=== PATIENT | male | born 1960 | race Caucasian/White ===

== ENCOUNTER → 2016-11-22 | Outpatient (REF) | payer MEDICAID ==
[2016-11-22 11:26] LABS: MEAN CORPUSCULAR HEMOGLOBIN 28.7 pg (27.0-33.0); MEAN CORPUSCULAR HGB CONC 33.1 g/dl (32.0-36.5); MEAN CORPUSCULAR VOLUME 86.8 fl (80.0-96.0); RED CELL DISTRIBUTION WIDTH 12.5 % (11.5-14.5); WHITE BLOOD COUNT 5.5 K/mm3 (4.0-10.0)
[2016-11-22 12:01] LABS: ALBUMIN/GLOBULIN RATIO 1.33 (1.00-1.93); ALKALINE PHOSPHATASE 69 U/L (45-117); ALT/SGPT 33 U/L (12-78); ANION GAP 10 MEQ/L (8-16); AST/SGOT 12 U/L (15-37); BILIRUBIN,TOTAL 0.4 MG/DL (0.2-1.0); BLOOD UREA NITROGEN 17 MG/DL (7-18); CALCIUM LEVEL 8.9 MG/DL (8.5-10.1); CARBON DIOXIDE LEVEL 27 MEQ/L (21-32); CHLORIDE LEVEL 102 MEQ/L (98-107); CHOLESTEROL LEVEL 216 MG/DL (<200); GLOMERULAR FILTRATION RATE > 60.0 (>56); GLUCOSE, FASTING 277 MG/DL (70-105); SODIUM LEVEL 139 MEQ/L (136-145); TRIGLYCERIDES LEVEL 155 MG/DL (<150)
== END ==
LOC: M SFHCLERA 09:14
PROVIDERS: ATTEND Family Medicine
DX: E11.8 Type 2 diabetes mellitus with unspecified complications (principal); E11.69 Type 2 diabetes mellitus with other specified complication; E55.9 Vitamin D deficiency, unspecified

== ENCOUNTER 2017-02-16 15:57 | Emergency (ER) | payer MEDICAID, OTHER ==
[~2017-02-16] VITALS: Ht 177.8 cm; Wt 110.2 kg
[2017-02-16 15:57] VITALS: BP 121/70
[2017-02-16] MEDS ORDERED: METF500T PO (16:19)
[2017-02-16] MEDS ORDERED: GABA-283 PO (16:19)
[2017-02-16] MEDS ORDERED: LISI2.5T3 PO (16:19)
[2017-02-16] MEDS ORDERED: simvastatin (16:19)
[2017-02-16] MEDS ORDERED: FLUO10CA8 PO (16:19)
[2017-02-16] MEDS ORDERED: ASPI1TAB PO (16:19)
[2017-02-16] MEDS ORDERED: JANU100T (16:19)
[2017-02-16] MEDS ORDERED: [UNRECOGNIZED DRUG - OTHER] (16:19)
[2017-02-16] MEDS ORDERED: KETOROLAC 60 MG/2 ML VIAL (J1885) IM ONE (16:30)
[2017-02-16] MEDS ORDERED: CYCL10TA PO (17:23)
[2017-02-16] MEDS ORDERED: NAPR500T PO (17:23)
--- NOTE | 2017-02-17 08:25 | REP ---
Pain in the neck after trauma. PRIORS: None. There is degenerative disc space narrowing at every level, particularly at the C5-6 and C6-7 level where anterior and posterior osteophytic ridging is the heaviest. The facet joints are well aligned bilaterally. Degenerative facet and uncovertebral joint changes are present mildly to moderately at every level, particularly involving the lower cervical levels. Vertebral body height and alignment is within normal limits. There is no acute fracture. IMPRESSION: Chronic changes. No acute fracture. Signed by Collin Martínez DO 02/17/2017 08:51 A
--- NOTE | 2017-02-17 08:28 | REP ---
Pain after trauma. PRIORS: None. There is moderate disc space narrowing at L2-3. There is mild to moderate disc space narrowing at L1-2. Anterior and posterior osteophytic ridging is seen at the L1-2 and L2-3 levels. Disc osteophyte complex involving those regions is probable. There is no acute fracture. There is no abnormal soft tissue swelling. IMPRESSION: Chronic changes as described above. Signed by Collin Martínez DO 02/17/2017 08:51 A
== END 2017-02-16 17:43 | disposition home or self-care (01) ==
LOC: M ED 16:28
DX: S13.4XXA Sprain of ligaments of cervical spine, initial encounter (principal); S33.5XXA Sprain of ligaments of lumbar spine, initial encounter; W01.0XXA Fall on same level from slipping, tripping and stumbling without subsequent striking against object, initial encounter; Y92.89 Other specified places as the place of occurrence of the external cause; Y93.9 Activity, unspecified; Y99.9 Unspecified external cause status; I10 Essential (primary) hypertension; G89.29 Other chronic pain; Z79.82 Long term (current) use of aspirin; Z79.899 Other long term (current) drug therapy
CPT/HCPCS: 72125; 72131; 96372; 99281; J1885; J3360

== ENCOUNTER → 2017-02-20 | Outpatient (REF) | payer MEDICAID, OTHER ==
[~2017-02-20] MED LIST: ASPI1TAB PO; CYCL10TA PO; FLUO10CA8 PO; GABA-283 PO; JANU100T; LISI2.5T3 PO; METF500T PO; NAPR500T PO; [UNRECOGNIZED DRUG - OTHER]; simvastatin
[2017-02-20 18:01] LABS: MEAN CORPUSCULAR HEMOGLOBIN 29.5 pg (27.0-33.0); MEAN CORPUSCULAR VOLUME 86.7 fl (80.0-96.0); RED CELL DISTRIBUTION WIDTH 12.9 % (11.5-14.5); WHITE BLOOD COUNT 5.9 K/mm3 (4.0-10.0)
[2017-02-20 18:25] LABS: ALBUMIN/GLOBULIN RATIO 1.38 (1.00-1.93); ALKALINE PHOSPHATASE 69 U/L (45-117); ALT/SGPT 33 U/L (12-78); ANION GAP 8 MEQ/L (8-16); AST/SGOT 14 U/L (15-37); BILIRUBIN,TOTAL 0.5 MG/DL (0.2-1.0); BLOOD UREA NITROGEN 20 MG/DL (7-18); CARBON DIOXIDE LEVEL 28 MEQ/L (21-32); CHLORIDE LEVEL 102 MEQ/L (98-107); CHOLESTEROL LEVEL 194 MG/DL (<200); CREATININE FOR GFR 1.13 MG/DL (0.70-1.30); GLOMERULAR FILTRATION RATE > 60.0 (>56); GLUCOSE, FASTING 236 MG/DL (70-105); SODIUM LEVEL 138 MEQ/L (136-145); TOTAL PROTEIN 6.9 GM/DL (6.4-8.2); TRIGLYCERIDES LEVEL 141 MG/DL (<150)
[2017-02-20 18:38] LABS: POTASSIUM SERUM 5.4 MEQ/L (3.5-5.1)
== END ==
LOC: M SFHCLERA 10:00
PROVIDERS: ATTEND Family Medicine
DX: E11.8 Type 2 diabetes mellitus with unspecified complications (principal); E78.2 Mixed hyperlipidemia

== ENCOUNTER → 2017-03-04 | Outpatient (REF) | payer MEDICAID ==
[2017-03-05 11:49] LABS: ALBUMIN 4.4 GM/DL (3.2-5.2); ALBUMIN/GLOBULIN RATIO 1.52 (1.00-1.93); ALKALINE PHOSPHATASE 77 U/L (45-117); ALT/SGPT 30 U/L (12-78); ANION GAP 6 MEQ/L (8-16); AST/SGOT 16 U/L (15-37); BILIRUBIN,TOTAL 0.6 MG/DL (0.2-1.0); BLOOD UREA NITROGEN 16 MG/DL (7-18); CALCIUM LEVEL 9.4 MG/DL (8.5-10.1); CARBON DIOXIDE LEVEL 28 MEQ/L (21-32); CHLORIDE LEVEL 106 MEQ/L (98-107); GLOMERULAR FILTRATION RATE > 60.0 (>56); GLUCOSE, FASTING 186 MG/DL (70-105); SODIUM LEVEL 140 MEQ/L (136-145); TOTAL PROTEIN 7.3 GM/DL (6.4-8.2)
[2017-03-05 11:55] LABS: POTASSIUM SERUM 5.7 MEQ/L (3.5-5.1)
== END ==
LOC: M SFHCLERA 16:10
PROVIDERS: ATTEND Family Medicine
DX: M62.82 Rhabdomyolysis (principal)

== ENCOUNTER → 2017-03-20 | Outpatient (REF) | payer MEDICAID, OTHER ==
[2017-03-20 20:51] LABS: ANION GAP 5 MEQ/L (8-16); BLOOD UREA NITROGEN 30 MG/DL (7-18); CALCIUM LEVEL 8.9 MG/DL (8.5-10.1); CARBON DIOXIDE LEVEL 28 MEQ/L (21-32); CHLORIDE LEVEL 105 MEQ/L (98-107); CREATININE FOR GFR 1.29 MG/DL (0.70-1.30); GLOMERULAR FILTRATION RATE > 60.0 (>56); GLUCOSE, FASTING 96 MG/DL (70-105); POTASSIUM SERUM 4.9 MEQ/L (3.5-5.1); SODIUM LEVEL 138 MEQ/L (136-145)
== END ==
LOC: M SFHCLERA 16:51
PROVIDERS: ATTEND Family Medicine
DX: E87.5 Hyperkalemia (principal)

== ENCOUNTER → 2017-04-13 | Outpatient (CLI) | payer OTHER ==
[2017-04-13 10:07] LABS: BASO # 0.1 K/mm3 (0.0-0.2); BASO % 0.8 % (0.0-1.0); EOS # 0.2 K/mm3 (0.0-0.50); EOS % 2.6 % (0.0-3.0); LARGE UNSTAINED CELL # 0.2 K/mm3 (0.0-0.4); LARGE UNSTAINED CELL % 2.2 % (0.0-4.0); LYMPH # 2.2 K/mm3 (1.5-4.5); LYMPH % 26.9 % (24.0-44.0); MEAN CORPUSCULAR HEMOGLOBIN 29.8 pg (27.0-33.0); MEAN CORPUSCULAR HGB CONC 33.4 g/dl (32.0-36.5); MEAN CORPUSCULAR VOLUME 89.1 fl (80.0-96.0); MONO # 0.4 K/mm3 (0.0-0.8); MONO % 5.8 % (0.0-5.0); NEUTROPHILS # 4.6 K/mm3 (1.8-7.7); NEUTROPHILS % 61.7 % (36.0-66.0); PLATELET COUNT, AUTOMATED 166 k/mm3 (150-450); RED CELL DISTRIBUTION WIDTH 13.1 % (11.5-14.5); WHITE BLOOD COUNT 7.5 K/mm3 (4.0-10.0)
[2017-04-13 10:25] LABS: ANION GAP 6 MEQ/L (8-16); BLOOD UREA NITROGEN 18 MG/DL (7-18); CARBON DIOXIDE LEVEL 28 MEQ/L (21-32); CHLORIDE LEVEL 103 MEQ/L (98-107); CREATININE FOR GFR 1.09 MG/DL (0.70-1.30); GLOMERULAR FILTRATION RATE > 60.0 (>56); GLUCOSE, FASTING 179 MG/DL (70-105); SODIUM LEVEL 137 MEQ/L (136-145)
[2017-04-13 10:29] LABS: POTASSIUM SERUM 5.8 MEQ/L (3.5-5.1)
== END ==
LOC: M LAB 08:42
PROVIDERS: ATTEND Physician Assistant
DX: Z01.818 Encounter for other preprocedural examination (principal)

== ENCOUNTER → 2017-05-27 | Outpatient (REF) | payer MEDICAID ==
[~2017-05-27] MED LIST changes: -METF500T PO; +METF500T13 PO
[2017-05-27 19:10] LABS: ANION GAP 7 MEQ/L (8-16); BLOOD UREA NITROGEN 19 MG/DL (7-18); CALCIUM LEVEL 9.6 MG/DL (8.5-10.1); CARBON DIOXIDE LEVEL 26 MEQ/L (21-32); CHLORIDE LEVEL 101 MEQ/L (98-107); CREATININE FOR GFR 1.25 MG/DL (0.70-1.30); GLOMERULAR FILTRATION RATE > 60.0 (>56); GLUCOSE, FASTING 178 MG/DL (70-105); SODIUM LEVEL 134 MEQ/L (136-145)
[2017-05-27 19:11] LABS: POTASSIUM SERUM 5.2 MEQ/L (3.5-5.1)
[2017-05-27 19:58] LABS: MEAN CORPUSCULAR HEMOGLOBIN 30.5 pg (27.0-33.0); MEAN CORPUSCULAR HGB CONC 34.4 g/dl (32.0-36.5); MEAN CORPUSCULAR VOLUME 88.7 fl (80.0-96.0); RED CELL DISTRIBUTION WIDTH 13.6 % (11.5-14.5); WHITE BLOOD COUNT 7.6 K/mm3 (4.0-10.0)
== END ==
LOC: M SFHCLERA 11:49
PROVIDERS: ATTEND Family Medicine
DX: F41.9 Anxiety disorder, unspecified (principal); E11.69 Type 2 diabetes mellitus with other specified complication

== ENCOUNTER → 2017-08-18 | Outpatient (REF) | payer OTHER, MEDICAID | LOC: M SFHCLERA 09:46 | PROVIDERS: ATTEND Physician Assistant | DX: J06.9 Acute upper respiratory infection, unspecified (principal) ==

== ENCOUNTER → 2017-09-17 | Outpatient (REF) | payer OTHER, MEDICAID ==
[2017-09-17 17:21] LABS: ALBUMIN/GLOBULIN RATIO 1.38 (1.00-1.93); ALKALINE PHOSPHATASE 80 U/L (45-117); ALT/SGPT 27 U/L (12-78); ANION GAP 7 MEQ/L (8-16); AST/SGOT 11 U/L (7-37); BILIRUBIN,TOTAL 0.4 MG/DL (0.2-1.0); BLOOD UREA NITROGEN 13 MG/DL (7-18); CARBON DIOXIDE LEVEL 29 MEQ/L (21-32); CHLORIDE LEVEL 103 MEQ/L (98-107); CREATININE FOR GFR 1.08 MG/DL (0.70-1.30); FREE T4 0.87 NG/DL (0.76-1.46); GLOMERULAR FILTRATION RATE > 60.0 (>56); GLUCOSE, FASTING 160 MG/DL (70-105); SODIUM LEVEL 139 MEQ/L (136-145); TOTAL PROTEIN 6.9 GM/DL (6.4-8.2)
[2017-09-17 17:24] LABS: POTASSIUM SERUM 5.2 MEQ/L (3.5-5.1)
[2017-09-20 00:07] LABS: Lyme Disease IgG/IgM Antibodie <0.91 ISR (0.00-0.90); Lyme Disease IgM Ab Quantitati <0.80 index (0.00-0.79)
== END ==
LOC: M SFHCLERA 09:43
PROVIDERS: ATTEND Family Medicine
DX: M25.50 Pain in unspecified joint (principal)

== ENCOUNTER → 2017-10-09 | Outpatient (REF) | payer OTHER, MEDICAID | LOC: M SFHCLERA 10:25 | PROVIDERS: ATTEND Family Medicine | DX: E87.5 Hyperkalemia (principal) ==

== ENCOUNTER → 2018-02-15 | Outpatient (CLI) | payer OTHER, MEDICAID | LOC: M LRY 09:31 | DX: M25.561 Pain in right knee (principal); M17.11 Unilateral primary osteoarthritis, right knee | CPT/HCPCS: 73564 ==

== ENCOUNTER → 2018-03-12 | Outpatient (REF) | payer OTHER, MEDICAID ==
[2018-03-12 12:18] LABS: ALBUMIN 4.3 GM/DL (3.2-5.2); ALBUMIN/GLOBULIN RATIO 1.65 (1.00-1.93); ALKALINE PHOSPHATASE 71 U/L (45-117); ALT/SGPT 30 U/L (12-78); ANION GAP 5 MEQ/L (8-16); AST/SGOT 20 U/L (7-37); BILIRUBIN,TOTAL 0.4 MG/DL (0.2-1.0); BLOOD UREA NITROGEN 22 MG/DL (7-18); CALCIUM LEVEL 9.4 MG/DL (8.5-10.1); CARBON DIOXIDE LEVEL 27 MEQ/L (21-32); CHLORIDE LEVEL 109 MEQ/L (98-107); CHOLESTEROL LEVEL 149 MG/DL (<200); CHOLESTEROL RISK RATIO 3.104 (<5); CREATININE FOR GFR 1.23 MG/DL (0.70-1.30); GLOMERULAR FILTRATION RATE > 60.0 (>56); GLUCOSE, FASTING 251 MG/DL (70-100); HDL CHOLESTEROL 48 MG/DL (>40); LDL CHOLESTEROL 80.8 MG/DL (<100); NON-HDL-C 101 MG/DL; SODIUM LEVEL 141 MEQ/L (136-145); TOTAL PROTEIN 6.9 GM/DL (6.4-8.2); TRIGLYCERIDES LEVEL 101 MG/DL (<150)
[2018-03-12 12:22] LABS: POTASSIUM SERUM 5.6 MEQ/L (3.5-5.1)
[2018-03-12 13:11] LABS: ESTIMATED AVERAGE GLUCOSE 200 MG/DL (60-110); HEMOGLOBIN A1c 8.6 %
== END ==
LOC: M SFHCLERA 09:05
DX: E11.8 Type 2 diabetes mellitus with unspecified complications (principal); E78.2 Mixed hyperlipidemia

== ENCOUNTER → 2018-03-19 | Outpatient (REF) | payer OTHER, MEDICAID ==
[2018-03-19 21:12] LABS: POTASSIUM SERUM 5.5 MEQ/L (3.5-5.1)
== END ==
LOC: M SFHCLERA 16:22
DX: E87.5 Hyperkalemia (principal)
CPT/HCPCS: 84132

== ENCOUNTER 2018-07-31 12:41 | Emergency (ER) | payer OTHER, MEDICAID ==
[2018-07-31 13:19] LABS: BASO # 0.1 10^3/uL (0.0-0.2); BASO % 0.7 % (0.0-1.0); EOS # 0.1 10^3/uL (0.0-0.50); EOS % 1.5 % (0.0-3.0); HEMATOCRIT 36.4 % (42.0-52.0); HEMOGLOBIN 12.2 g/dl (13.5-17.5); IMMATURE GRANULOCYTE % 0.3 % (0-3.0); LYMPH # 1.6 10^3/uL (1.5-4.5); LYMPH % 21.8 % (24.0-44.0); MEAN CORPUSCULAR HGB CONC 33.5 g/dl (32.0-36.5); MEAN CORPUSCULAR VOLUME 89.4 fl (80.0-96.0); MONO # 0.6 10^3/uL (0.0-0.8); MONO % 7.9 % (0.0-5.0); NEUTROPHILS # 4.8 10^3/uL (1.8-7.7); NEUTROPHILS % 67.8 % (36.0-66.0); PLATELET COUNT, AUTOMATED 183 10^3/uL (150-450); RED BLOOD COUNT 4.07 10^6/uL (4.30-6.10); RED CELL DISTRIBUTION WIDTH 12.7 % (11.5-14.5); WHITE BLOOD COUNT 7.1 10^3/uL (4.0-10.0)
[2018-07-31 13:52] LABS: ANION GAP 7 MEQ/L (8-16); BLOOD UREA NITROGEN 20 MG/DL (7-18); CALCIUM LEVEL 8.3 MG/DL (8.5-10.1); CARBON DIOXIDE LEVEL 25 MEQ/L (21-32); CHLORIDE LEVEL 105 MEQ/L (98-107); CPK CREATINE PHOSPHOKINASE 189 U/L (39-308); CREATININE FOR GFR 1.38 MG/DL (0.70-1.30); GLOMERULAR FILTRATION RATE 56.7 (>56); GLUCOSE, FASTING 128 MG/DL (70-100); POTASSIUM SERUM 4.8 MEQ/L (3.5-5.1); SODIUM LEVEL 137 MEQ/L (136-145); TROPONIN I < 0.02 NG/ML (< 0.10)
[2018-07-31] MEDS ORDERED: ISOVUE-370 76% 100ML VIAL (Q9967) As Ordered (14:56)
[2018-07-31 19:10] LABS: CPK CREATINE PHOSPHOKINASE 167 U/L (39-308); MB/CK RELATIVE INDEX 1.68 (< OR =4); TROPONIN I < 0.02 NG/ML (< 0.10)
== END 2018-07-31 21:07 | disposition home or self-care (01) ==
LOC: M ED 12:41
DX: R07.89 Other chest pain (principal); E11.9 Type 2 diabetes mellitus without complications; I25.10 Atherosclerotic heart disease of native coronary artery without angina pectoris; I10 Essential (primary) hypertension; F41.9 Anxiety disorder, unspecified; F33.9 Major depressive disorder, recurrent, unspecified; Z79.899 Other long term (current) drug therapy; Z79.82 Long term (current) use of aspirin; Z79.84 Long term (current) use of oral hypoglycemic drugs
CPT/HCPCS: Q9967

== ENCOUNTER → 2018-09-10 | Outpatient (REF) | payer MEDICAID ==
[2018-09-10 11:40] LABS: BASO # 0.1 10^3/uL (0.0-0.2); BASO % 0.7 % (0.0-1.0); EOS # 0.1 10^3/uL (0.0-0.50); EOS % 1.1 % (0.0-3.0); HEMATOCRIT 39.4 % (42.0-52.0); HEMOGLOBIN 13.2 g/dl (13.5-17.5); IMMATURE GRANULOCYTE % 0.4 % (0-3.0); LYMPH # 1.6 10^3/uL (1.5-4.5); LYMPH % 14.3 % (24.0-44.0); MEAN CORPUSCULAR HEMOGLOBIN 29.2 pg (27.0-33.0); MEAN CORPUSCULAR HGB CONC 33.5 g/dl (32.0-36.5); MEAN CORPUSCULAR VOLUME 87.2 fl (80.0-96.0); MONO # 0.7 10^3/uL (0.0-0.8); MONO % 6.4 % (0.0-5.0); NEUTROPHILS # 8.8 10^3/uL (1.8-7.7); NEUTROPHILS % 77.1 % (36.0-66.0); PLATELET COUNT, AUTOMATED 198 10^3/uL (150-450); RED BLOOD COUNT 4.52 10^6/uL (4.30-6.10); RED CELL DISTRIBUTION WIDTH 12.5 % (11.5-14.5); WHITE BLOOD COUNT 11.4 10^3/uL (4.0-10.0)
[2018-09-10 11:45] LABS: ALBUMIN 4.1 GM/DL (3.2-5.2); ALBUMIN/GLOBULIN RATIO 1.46 (1.00-1.93); ALKALINE PHOSPHATASE 84 U/L (45-117); ALT/SGPT 30 U/L (12-78); ANION GAP 7 MEQ/L (8-16); AST/SGOT 11 U/L (7-37); BILIRUBIN,TOTAL 0.4 MG/DL (0.2-1.0); BLOOD UREA NITROGEN 23 MG/DL (7-18); CALCIUM LEVEL 9.1 MG/DL (8.5-10.1); CARBON DIOXIDE LEVEL 27 MEQ/L (21-32); CHLORIDE LEVEL 102 MEQ/L (98-107); CREATININE FOR GFR 1.23 MG/DL (0.70-1.30); GLOMERULAR FILTRATION RATE > 60.0 (>56); GLUCOSE, FASTING 218 MG/DL (70-100); POTASSIUM SERUM 5.1 MEQ/L (3.5-5.1); SODIUM LEVEL 136 MEQ/L (136-145); TOTAL PROTEIN 6.9 GM/DL (6.4-8.2)
[2018-09-10 11:54] LABS: ESTIMATED AVERAGE GLUCOSE 180 MG/DL (60-110); HEMOGLOBIN A1c 7.9 %
[2018-09-10 12:33] LABS: CREATININE, URINE 97.9 MG/DL; MALB URINE SIEMENS 26.3 MG/L
[2018-09-10 12:41] LABS: MAU/CREAT RATIO 26.9 MCG/MG (0.0-30.0)
== END ==
LOC: M SFHCLERA 08:57
DX: E11.319 Type 2 diabetes mellitus with unspecified diabetic retinopathy without macular edema (principal)

== ENCOUNTER → 2018-12-09 | Outpatient (REF) | payer MEDICAID, OTHER ==
[~2018-12-09] MED LIST changes: +CLOP75TA2 PO; -GABA-283 PO; +GABA-845 PO; +GLYB5TA PO; +LABE20TAB PO; -LISI2.5T3 PO; +LISI2.5T5 PO; +NAPR-50 PO; -NAPR500T PO; +NITR0.4S14 SL; +RANO5TAB PO; +SIMV40TA2 PO; +TRUL10IN SC
[2018-12-09 12:08] LABS: HEMATOCRIT 39.6 % (42.0-52.0); HEMOGLOBIN 12.8 g/dl (13.5-17.5); RED BLOOD COUNT 4.38 10^6/uL (4.30-6.10); WHITE BLOOD COUNT 7.9 10^3/uL (4.0-10.0)
[2018-12-09 12:09] LABS: BASO % 0.5 % (0.0-1.0); EOS # 0.1 10^3/uL (0.0-0.50); EOS % 1.5 % (0.0-3.0); LYMPH # 1.4 10^3/uL (1.5-4.5); LYMPH % 18.2 % (24.0-44.0); MEAN CORPUSCULAR HEMOGLOBIN 29.2 pg (27.0-33.0); MEAN CORPUSCULAR HGB CONC 32.3 g/dl (32.0-36.5); MEAN CORPUSCULAR VOLUME 90.4 fl (80.0-96.0); MONO # 0.7 10^3/uL (0.0-0.8); MONO % 8.3 % (0.0-5.0); NEUTROPHILS # 5.6 10^3/uL (1.8-7.7); PLATELET COUNT, AUTOMATED 193 10^3/uL (150-450)
[2018-12-09 12:37] LABS: HEMOGLOBIN A1c 7.8 %
== END ==
LOC: M SFHCLERA 08:51
PROVIDERS: ATTEND Family Medicine
DX: E11.319 Type 2 diabetes mellitus with unspecified diabetic retinopathy without macular edema (principal)

== ENCOUNTER → 2018-12-31 | Outpatient (REF) ==
--- NOTE | 2018-12-31 14:30 | REP ---
RIGHT KNEE, FIVE VIEWS: HISTORY: Degenerative joint disease. There is no acute fracture or dislocation. There is severe narrowing of the medial knee joint space and minimal narrowing of the lateral knee joint space and patellofemoral joint space. Osteophytes are present on the femur, tibia, and patella. IMPRESSION: Degenerative change, as described above. Electronically Signed by Gary Trujillo MD 12/31/2018 02:43 P
== END ==
LOC: M SMT 13:52
PROVIDERS: ATTEND Internal Medicine
DX: Z02.89 Encounter for other administrative examinations (principal)

== ENCOUNTER → 2019-05-06 | Outpatient (REF) | payer OTHER ==
[~2019-05-06] MED LIST changes: -ASPI1TAB PO; +ASPI81TA26 PO; +ATOR40TA75 PO; +LISI-1046 PO; -LISI2.5T5 PO; +METO37.5 PO; -NAPR-50 PO; +NAPR-837 PO; +NEUR300C PO; +RANO500T7 PO; -RANO5TAB PO; +VERA180T3 PO
[2019-05-06 12:00] LABS: CALCIUM LEVEL 8.9 MG/DL (8.5-10.1); CHOLESTEROL RISK RATIO 3.425 (<5); CREATININE FOR GFR 1.55 MG/DL (0.70-1.30); GLOMERULAR FILTRATION RATE 49.4 (>56); POTASSIUM SERUM 5.3 MEQ/L (3.5-5.1)
[2019-05-06 13:30] LABS: HEMOGLOBIN A1c 8.1 %
== END ==
LOC: M SFHCLERA 08:42
PROVIDERS: ATTEND Family Medicine
DX: E11.319 Type 2 diabetes mellitus with unspecified diabetic retinopathy without macular edema (principal); E78.5 Hyperlipidemia, unspecified

== ENCOUNTER → 2019-05-06 | Outpatient (CLI) | payer OTHER ==
--- NOTE | 2019-05-06 09:42 | REP ---
Clinical: Lower back pain. Technique: AP, lateral, bilateral oblique and coned-down views of the lumbosacral spine. Findings: Moderate multilevel degenerative changes are appreciated. Alignment and lordosis maintained. No acute lumbar fracture / compression injury or subluxation. Sacrum appears intact. However, the sacrococcygeal region is incompletely evaluated. Impression: Moderate multilevel degenerative changes. No acute fracture / compression injury or subluxation appreciated. Electronically Signed by Eyal Santiago MD 05/06/2019 09:34 A
== END ==
LOC: M LRY 08:56
PROVIDERS: ATTEND Family Medicine
DX: E11.319 Type 2 diabetes mellitus with unspecified diabetic retinopathy without macular edema (principal)

== ENCOUNTER 2019-05-08 17:42 | Emergency (ER) | payer OTHER ==
[~2019-05-08] VITALS: Ht 177.8 cm; Wt 107.3 kg
[~2019-05-08 17:42] MED LIST changes: -ATOR40TA75 PO; -METO37.5 PO; -NEUR300C PO; -VERA180T3 PO
[2019-05-08] MEDS ORDERED: METO37.5 PO (18:00)
[2019-05-08] MEDS ORDERED: ATOR40TA75 PO (18:00)
[2019-05-08] MEDS ORDERED: VERA180T3 PO (18:00)
[2019-05-08 18:02] LABS: BASO % 0.6 % (0.0-1.0); EOS # 0.2 10^3/uL (0.0-0.50); EOS % 2.2 % (0.0-3.0); HEMATOCRIT 38.7 % (42.0-52.0); LYMPH # 1.9 10^3/uL (1.5-4.5); LYMPH % 27.8 % (24.0-44.0); MEAN CORPUSCULAR HEMOGLOBIN 30.2 pg (27.0-33.0); MEAN CORPUSCULAR HGB CONC 33.6 g/dl (32.0-36.5); MEAN CORPUSCULAR VOLUME 89.8 fl (80.0-96.0); MONO # 0.7 10^3/uL (0.0-0.8); MONO % 9.9 % (0.0-5.0); NEUTROPHILS % 59.4 % (36.0-66.0); PLATELET COUNT, AUTOMATED 215 10^3/uL (150-450); RED BLOOD COUNT 4.31 10^6/uL (4.30-6.10); WHITE BLOOD COUNT 6.7 10^3/uL (4.0-10.0)
--- NOTE | 2019-05-08 18:30 | REPVR ---
EXAM: CT Head Without Contrast EXAM DATE/TIME: 05/08/2019 5:59 PM CLINICAL HISTORY: 59 years old, male; Altered mental status/memory loss; Confusion or disorientation TECHNIQUE: Imaging protocol: Axial computed tomography images of the head without contrast. Radiation optimization: All CT scans at this facility use at least one of these dose optimization techniques: automated exposure control; mA and/or kV adjustment per patient size (includes targeted exams where dose is matched to clinical indication); or iterative reconstruction. COMPARISON: No relevant prior studies available. FINDINGS: Brain: No intracranial hemorrhage. No evidence of acute infarction. Diffuse cortical volume loss. Patchy white matter hypodensities consistent with chronic small vessel ischemic changes among other possible etiologies. Ventricles: Concordant prominence of the ventricles relative to degree of cortical atrophy. Bones/joints: Unremarkable. No acute fracture. Sinuses: Visualized sinuses are unremarkable. No fluid levels. Mastoid air cells: No mastoid effusion. Soft tissues: Unremarkable. IMPRESSION: 1. No acute intracranial abnormality. 2. Nonacute/incidental findings above. Electronically signed by: Aftab Burks On 05/08/2019 18:30:21 PM
[2019-05-08 18:48] LABS: ACETAMINOPHEN LEVEL < 2.0 UG/ML (10.0-30.0); ALBUMIN 3.9 GM/DL (3.2-5.2); ALT/SGPT 31 U/L (12-78); BILIRUBIN,DIRECT 0.1 MG/DL (0.0-0.2); BILIRUBIN,TOTAL 0.4 MG/DL (0.2-1.0); BLOOD UREA NITROGEN 30 MG/DL (7-18); CALCIUM LEVEL 8.7 MG/DL (8.5-10.1); CARBON DIOXIDE LEVEL 23 MEQ/L (21-32); CHLORIDE LEVEL 107 MEQ/L (98-107); CK-MB VALUE MASS 3.3 NG/ML (<3.6); CPK CREATINE PHOSPHOKINASE 225 U/L (39-308); CREATININE FOR GFR 1.83 MG/DL (0.70-1.30); ETHYL ALCOHOL (ETHANOL) < 0.003 % (0.000-0.010); GLOMERULAR FILTRATION RATE 40.8 (>56); GLUCOSE, FASTING 258 MG/DL (70-100); MB/CK RELATIVE INDEX 1.47 (< OR =4); POTASSIUM SERUM 4.4 MEQ/L (3.5-5.1); SALICYLATE LEVEL < 1.7 MG/DL (5.0-30.0); SODIUM LEVEL 139 MEQ/L (136-145); TOTAL PROTEIN 6.8 GM/DL (6.4-8.2); TROPONIN I < 0.02 NG/ML (< 0.10)
[2019-05-08 19:00] VITALS: BP 120/56
[2019-05-08] MEDS ORDERED: NEUR300C PO (19:23)
--- NOTE | 2019-05-09 11:18 | ECGEPIP ---
[facility] - ED Test Date: 2019-05-08 Pat Name: DALTON PARHAM Department: Room: - Gender: Male Security Installer: MIGUEL ANGEL : 1960 Requested By: KULWINDER SPRINGER Order Number: [id number] Reading MD: Rasheeda Moy Measurements Intervals [place] Rate: 68 P: 14 DE: 148 QRS: 22 QRSD: 85 T: 43 QT: 412 QTc: 441 Interpretive Statements SINUS RHYTHM SIMILAR 07/31/18 Electronically Signed on 05-09-2019 11:18:09 EDT by Rasheeda Moy
== END 2019-05-08 19:35 | disposition home or self-care (01) ==
LOC: M ED 17:42
DX: E11.40 Type 2 diabetes mellitus with diabetic neuropathy, unspecified (principal); N28.9 Disorder of kidney and ureter, unspecified; I11.9 Hypertensive heart disease without heart failure; Z95.1 Presence of aortocoronary bypass graft; Z79.899 Other long term (current) drug therapy; Z79.82 Long term (current) use of aspirin; Z79.84 Long term (current) use of oral hypoglycemic drugs; Z79.02 Long term (current) use of antithrombotics/antiplatelets
CPT/HCPCS: 36415; 70450; 80048; 80076; 82550; 82553; 84443; 85025; 93005; 93041; 94760; 99285; G0480

== ENCOUNTER → 2019-05-13 | Outpatient (REF) | payer OTHER ==
[~2019-05-13] MED LIST changes: +ATOR40TA75 PO; +METO37.5 PO; +NEUR300C PO; +VERA180T3 PO
[2019-05-13 13:46] LABS: BLOOD UREA NITROGEN 13 MG/DL (7-18); CALCIUM LEVEL 9.4 MG/DL (8.5-10.1); CARBON DIOXIDE LEVEL 28 MEQ/L (21-32); CHLORIDE LEVEL 105 MEQ/L (98-107); GLOMERULAR FILTRATION RATE > 60.0 (>56); GLUCOSE, FASTING 143 MG/DL (70-100); POTASSIUM SERUM 4.8 MEQ/L (3.5-5.1); SODIUM LEVEL 139 MEQ/L (136-145)
== END ==
LOC: M SFHCLERA 12:31
PROVIDERS: ATTEND Family Medicine
DX: R79.89 Other specified abnormal findings of blood chemistry (principal)

== ENCOUNTER → 2019-05-18 | Outpatient (REF) | payer OTHER ==
[2019-05-18 17:17] LABS: URINE TOTAL PROTEIN 15.9 MG/DL (0-12)
[2019-05-18 17:29] LABS: TOTAL PROTEIN 7.1 GM/DL (6.4-8.2)
[2019-05-18 17:32] LABS: VITAMIN B12 LEVEL 220 PG/ML
[2019-05-19 12:45] LABS: ALBUMIN 4.42 GM/DL (3.29-5.55); ALBUMIN % 62.3 % (55.8-66.1); ALPHA-1-GLOBULIN % 4.6 % (2.9-4.9); ALPHA-1-GLOBULINS 0.33 GM/DL (0.17-0.41); ALPHA-2-GLOBULINS 0.92 GM/DL (0.42-0.99); ALPHA-2-GLOBULINS % 12.9 % (7.1-11.8); BETA-1-GLOBULINS % 6.3 % (4.7-7.2); BETA-2-GLOBULINS % 4.1 % (3.2-6.5); GAMMA GLOBULIN % 9.8 % (11.1-18.8)
[2019-05-19 12:46] LABS: BETA-1-GLOBULINS 0.45 GM/DL (0.28-0.60); BETA-2-GLOBULINS 0.29 GM/DL (0.19-0.55)
[2019-05-21 00:09] LABS: ANA (HEP2) Negative (.); Lyme Disease IgG/IgM Antibodie <0.91 ISR (0.00-0.90); Lyme Disease IgM Ab Quantitati <0.80 index (0.00-0.79)
[2019-05-21 12:30] LABS: UPEP INTERPRETATION NO M-SPIKE NOTED; URINE VOLUME RANDOM ML
== END ==
LOC: M SFHCLERA 13:26
PROVIDERS: ATTEND Family Medicine
DX: R20.0 Anesthesia of skin (principal)

== ENCOUNTER → 2019-05-27 | Outpatient (REF) | payer OTHER ==
[2019-05-27 16:20] LABS: FREE T4 0.84 NG/DL (0.76-1.46); RHEUMATOID FACTOR QUANT < 10.0 IU/ML (<15.0); TOTAL PROTEIN 7.4 GM/DL (6.4-8.2)
[2019-05-27 16:26] LABS: FOLATE 11.7 NG/ML (>5.4); VITAMIN B12 LEVEL 290 PG/ML (247-911)
[2019-05-28 13:12] LABS: ALBUMIN 4.49 GM/DL (3.29-5.55); ALBUMIN % 60.7 % (55.8-66.1); ALPHA-1-GLOBULIN % 4.8 % (2.9-4.9); ALPHA-1-GLOBULINS 0.36 GM/DL (0.17-0.41); ALPHA-2-GLOBULINS 1.01 GM/DL (0.42-0.99); ALPHA-2-GLOBULINS % 13.6 % (7.1-11.8); BETA-1-GLOBULINS 0.48 GM/DL (0.28-0.60); BETA-1-GLOBULINS % 6.5 % (4.7-7.2); BETA-2-GLOBULINS 0.31 GM/DL (0.19-0.55); BETA-2-GLOBULINS % 4.2 % (3.2-6.5); GAMMA GLOBULIN % 10.2 % (11.1-18.8); GAMMA GLOBULINS 0.75 GM/DL (0.65-1.58)
[2019-06-02 14:07] LABS: ANTINUCLEAR ANTIBODIES DIRECT Negative (Negative); Methylmalonic Acid 258 nmol/L (0-378); VITAMIN B1 LEVEL WHOLE BLOOD 170.2 nmol/L (66.5-200.0); VITAMIN B6,PYRIDOXAL PHOSPHATE 11.6 ug/L (5.3-46.7); VITAMIN E(GAMMA TOCOPHEROL) 2.5 mg/L (0.5-5.5)
== END ==
LOC: M LABNEURO 14:46
PROVIDERS: ATTEND Psychiatry & Neurology Neurology
DX: R20.2 Paresthesia of skin (principal)

== ENCOUNTER → 2019-07-20 | Outpatient (CLI) | payer OTHER ==
[2019-07-20 17:21] LABS: FOLATE 10.6 NG/ML
== END ==
LOC: M LRY 12:33
PROVIDERS: ATTEND Psychiatry & Neurology Neurology
DX: E53.8 Deficiency of other specified B group vitamins (principal)

== ENCOUNTER → 2019-08-27 | Outpatient (CLI) | payer OTHER ==
--- NOTE | 2019-08-27 13:08 | REP ---
Two-view chest: 08/27/2019. Indication: Dyspnea. Comparison: 02/19/2019. Findings: The lungs are clear. There is no pleural effusion or pneumothorax. The cardiomediastinal silhouette is unremarkable. Impression: No acute cardiopulmonary process. Electronically Signed by Demetrio Dale DO 08/27/2019 12:59 P
== END ==
LOC: M SMT 10:43
PROVIDERS: ATTEND Internal Medicine Pulmonary Disease
DX: R06.02 Shortness of breath (principal)

== ENCOUNTER → 2019-09-01 | Outpatient (REF) | payer OTHER ==
[2019-09-01 12:13] LABS: CREATININE FOR GFR 1.41 MG/DL (0.70-1.30); GLOMERULAR FILTRATION RATE 55.2 (>56); POTASSIUM SERUM 5.3 MEQ/L (3.5-5.1)
[2019-09-01 12:35] LABS: MALB URINE SIEMENS 64.3 MG/L; MAU/CREAT RATIO 34.9 MCG/MG (0.0-30.0)
[2019-09-01 12:41] LABS: HEMOGLOBIN A1c 7.8 %
== END ==
LOC: M SFHCLERA 07:57
PROVIDERS: ATTEND Family Medicine
DX: E11.319 Type 2 diabetes mellitus with unspecified diabetic retinopathy without macular edema (principal)

== ENCOUNTER → 2019-09-08 | Outpatient (CLI) | payer OTHER ==
--- NOTE | 2019-09-08 14:26 | PFTRPT ---
Height: 70.00 Inches Weight: 240.00 Lbs BSA: 2.26 Diagnosis: R06.02 DATE OF PROCEDURE: 09/08/2019 ORDERED BY: Dr. Manjeet Barnes Spirometry: Pre and post bronchodilator study of excellent technical quality. Forced vital capacity mildly reduced. FEV1 is in proportion. Obstructive index is, therefore, normal. Flow Volume Loop: Expiratory limb of the flow volume loop suggests nonspecific flow rate limitation. No significant bronchodilator response is identified. Lung Volumes: Total lung capacity normal. Residual volume is in proportion. Diffusing Capacity: Diffusing capacity, although mildly reduced, is appropriate for alveolar volume. Hemoglobin: Hemoglobin acceptable at 13.5. Airway Mechanics: Airway resistance mildly elevated with a concomitant decrease in airway conductance. IMPRESSION: Mild reduction in the absolute diffusing capacity with elevated airway resistance. Please correlate clinically. MTDD
== END ==
LOC: M CARPUL 13:22
PROVIDERS: ATTEND Internal Medicine Pulmonary Disease
DX: R06.02 Shortness of breath (principal)

== ENCOUNTER → 2019-09-22 | Outpatient (CLI) | payer OTHER ==
--- NOTE | 2019-09-28 12:28 | SLEEPCENT ---
DATE OF PROCEDURE: 09/22/2019 ORDERED BY: Dr. Barnes Nocturnal polysomnography was performed for evaluation of sleep physiology in this patient with a history of excessive somnolence and nonrestorative sleep who has underlying comorbidity of hypertension. 7 hours and 56 minutes of data were reviewed. There were 398.5 minutes of sleep identified. Sleep latency was normal at 18 minutes. Rapid eye movement (REM) latency was somewhat delayed at 182 minutes. Sleep architecture showed fragmentation with one REM episode. Overall sleep efficiency was 84.4%. The patient's electrocardiogram showed sinus rhythm with an average heart rate at 58 beats per minute. Electroencephalogram (EEG) showed normal waveforms for awake and sleep. There were 351 respiratory events identified of 10 seconds in duration or greater for an apnea-hypopnea index of 52.8. The events were primarily obstructive, not exclusive to sleep stage, more frequent in the supine posture. Arousals from respiratory events occurred 24.2 times per hour and oxygen desaturations were seen into the 80s. There was some activity in the limb EMG leads but limb movement arousal index is only 0.3. Snoring was noted over the entire course of study. IMPRESSION: Severe obstructive sleep apnea syndrome (G47.33). Apnea-hypopnea index 52.8. RECOMMENDATIONS: The patient should be encouraged to return to sleep disorder center for pressure therapy. In the interim, alcohol and sedative avoidance should be practiced and caution exercised during operation of motor vehicles.
== END ==
LOC: M SLEEP 17:51
PROVIDERS: ATTEND Internal Medicine Pulmonary Disease
DX: G47.33 Obstructive sleep apnea (adult) (pediatric) (principal)

== ENCOUNTER 2019-10-21 19:23 | Emergency (ER) | payer OTHER ==
[~2019-10-21 19:23] MED LIST changes: +FLUO10CA15 PO; -FLUO10CA8 PO; -SIMV40TA2 PO; +SIMV40TA20 PO
[2019-10-21] MEDS ORDERED: GLIP10TA PO (19:46)
[2019-10-21] MEDS ORDERED: STEG5TAB PO (19:47)
[2019-10-21] MEDS ORDERED: CHLO125TA (19:49)
[2019-10-21] MEDS ORDERED: dexameTHASONE 20 MG/5 ML VIAL (J1100) IV ONE (20:00)
[2019-10-21] MEDS: IPRATROPIUM 0.5MG/ALBUTEROL 2.5MG INH SOL UD 3ML (DUONEB)(J7620) NEB SCH ×3 (20:14→20:57)
[2019-10-21 20:19] LABS: VENOUS BASE EXCESS 1.5 (-2.0-2.0); VENOUS O2 SATURATION 40.8 % (60.0-80.0); VENOUS PARTIAL PRESSURE CO2 51.8 mmHg (38.0-50.0); VENOUS PH 7.351 UNITS (7.330-7.430); VENOUS STANDARD HCO3 24.4 MEQ/L; VENOUS TOTAL CO2 29.6 MEQ/L (24.0-28.0)
[2019-10-21 20:21] LABS: BASO % 0.3 % (0.0-1.0); EOS # 0.1 10^3/uL (0.0-0.5); EOS % 1.2 % (0.0-3.0); HEMATOCRIT 42.5 % (42.0-52.0); HEMOGLOBIN 13.8 g/dl (13.5-17.5); LYMPH # 1.5 10^3/uL (1.5-5.0); LYMPH % 13.4 % (24.0-44.0); MEAN CORPUSCULAR HEMOGLOBIN 28.9 pg (27.0-33.0); MEAN CORPUSCULAR HGB CONC 32.5 g/dl (32.0-36.5); MEAN CORPUSCULAR VOLUME 89.1 fl (80.0-96.0); MONO # 0.6 10^3/uL (0.0-0.8); MONO % 5.4 % (0.0-5.0); NEUTROPHILS # 8.8 10^3/uL (1.5-8.5); NEUTROPHILS % 79.4 % (36.0-66.0); PLATELET COUNT, AUTOMATED 224 10^3/uL (150-450); RED BLOOD COUNT 4.77 10^6/uL (4.30-6.10); WHITE BLOOD COUNT 11.1 10^3/uL (4.0-10.0)
[2019-10-21 20:42] LABS: BLOOD UREA NITROGEN 27 MG/DL (7-18); CALCIUM LEVEL 9.1 MG/DL (8.5-10.1); CARBON DIOXIDE LEVEL 29 MEQ/L (21-32); CHLORIDE LEVEL 99 MEQ/L (98-107); CK-MB VALUE MASS 1.9 NG/ML (<3.6); CPK CREATINE PHOSPHOKINASE 156 U/L (39-308); CREATININE FOR GFR 1.89 MG/DL (0.70-1.30); GLOMERULAR FILTRATION RATE 39.3 (>56); GLUCOSE, FASTING 129 MG/DL (70-100); MB/CK RELATIVE INDEX 1.22 (< OR =4); NT-PRO BNP 103 PG/ML (<125); POTASSIUM SERUM 3.8 MEQ/L (3.5-5.1); SODIUM LEVEL 139 MEQ/L (136-145); TROPONIN I < 0.02 NG/ML (< 0.10)
[2019-10-21 20:54] LABS: INFLUENZA A AMPLIFICATION NEGATIVE (NEGATIVE); INFLUENZA B AMPLIFICATION NEGATIVE (NEGATIVE)
[2019-10-21] MEDS ORDERED: NS 1,000 ML IV ONE (21:00)
--- NOTE | 2019-10-21 21:24 | REP ---
CHEST, TWO VIEWS: There is no evidence of acute infiltrate. No pleural effusion is seen. The heart is normal in size. The mediastinal silhouette is unremarkable. The visualized osseous structures are intact. IMPRESSION: No acute pulmonary disease. Electronically Signed by Pan Elmore MD 10/22/2019 08:48 A
--- NOTE | 2019-10-21 23:10 | ED PDOC ---
Post-Departure Follow-Up The T sheet had been already removed at this time. Documenting here the pt. wish ed to leave so he could take care of his mother. The pt. will have to leave AMA. FAUSTINO JUÁREZ DO Oct 21, 2019 23:10
[2019-10-21] MEDS ORDERED: PRED20TA PO (23:11)
[2019-10-21] MEDS ORDERED: ATOR80TA59 PO (23:31)
[2019-10-21] MEDS ORDERED: FLUO20CA20 PO (23:31)
[2019-10-21] MEDS ORDERED: CHLO25TA PO (23:31)
[2019-10-21] MEDS ORDERED: TRUL0.5I SC (23:31)
[2019-10-21] MEDS ORDERED: GABA-843 PO (23:31)
[2019-10-21] MEDS ORDERED: RANO500T PO (23:35)
[2019-10-21] MEDS ORDERED: METF-877 PO (23:35)
[2019-10-21] MEDS ORDERED: METO1TAB87 PO (23:35)
--- NOTE | 2019-10-21 23:47 | REPVR ---
PROCEDURE INFORMATION: Exam: CT Chest Without Contrast Exam date and time: 10/21/2019 10:54 PM Age: 59 years old Clinical indication: Dyspnea; Additional info: Dysp TECHNIQUE: Imaging protocol: Computed tomography of the chest without contrast. 3D rendering: MIP and/or 3D reconstructed images were created by the technologist. Radiation optimization: All CT scans at this facility use at least one of these dose optimization techniques: automated exposure control; mA and/or kV adjustment per patient size (includes targeted exams where dose is matched to clinical indication); or iterative reconstruction. COMPARISON: CT ANGIO CHEST 07/31/2018 2:54 PM FINDINGS: Lungs: Scattered reticulonodular interstitial densities and some areas of mild bronchial wall thickening are noted in both lungs. Airways are clear. No other airspace consolidation or masses. Pleural space: Unremarkable. No pneumothorax. No pleural effusion. Heart: Coronary artery atherosclerotic disease is present. Normal heart size. Aorta: Unremarkable. No aortic aneurysm. Lymph nodes: Unremarkable. No enlarged lymph nodes. Bones/joints: Unremarkable. No acute fracture. Soft tissues: Unremarkable. IMPRESSION: 1. Reticulonodular opacities and bronchial wall thickening in both lungs suggesting a viral or atypical bronchiolitis. 2. Coronary artery disease. Electronically signed by: Travis Long On 10/21/2019 23:46:54 PM
[2019-10-21 23:50] VITALS: BP 124/59
--- NOTE | 2019-10-23 22:10 | ECGEPIP ---
[facility] - ED Test Date: 2019-10-21 Pat Name: DALTON PARHAM Department: Room: - Gender: Male Investigation Clerk: RADHA : 1960 Requested By: FAUSTINO JUÁREZ Order Number: [id number] Reading MD: Lit Browne Measurements Intervals [place] Rate: 71 P: 16 SC: 160 QRS: 6 QRSD: 88 T: 50 QT: 417 QTc: 454 Interpretive Statements SINUS RHYTHM MODERATE T-WAVE ABNORMALITY, CONSIDER LATERAL ISCHEMIA Baseline artifact Similar to tracing done 05-08-19 Electronically Signed on 10-23-2019 22:09:51 EST by Lit Browne
--- NOTE | 2019-10-26 08:12 | ED PDOC ---
Post-Departure Follow-Up dr sheehan faxed formal report of ct chest foro Yobani Angulo MD Oct 26, 2019 08:12
== END 2019-10-21 23:49 | disposition left against medical advice (07) ==
LOC: M ED 19:23
DX: R09.02 Hypoxemia (principal); J20.9 Acute bronchitis, unspecified; Z53.21 Procedure and treatment not carried out due to patient leaving prior to being seen by health care provider; E11.9 Type 2 diabetes mellitus without complications; I10 Essential (primary) hypertension; I25.10 Atherosclerotic heart disease of native coronary artery without angina pectoris; F32.9 Major depressive disorder, single episode, unspecified; F41.9 Anxiety disorder, unspecified; Z98.61 Coronary angioplasty status; Z79.02 Long term (current) use of antithrombotics/antiplatelets
CPT/HCPCS: 71046; 71250; 80048; 82550; 82553; 82803; 83880; 85025; 87040; 87502; 93005; 94640; 96374; 96375; 99285; J1100

== ENCOUNTER → 2019-11-09 | Outpatient (CLI) | payer OTHER ==
[~2019-11-09] MED LIST changes: +ATOR80TA59 PO; +CHLO125TA; +CHLO25TA PO; +FLUO20CA20 PO; +GABA-843 PO; +GLIP10TA PO; +METF-877 PO; +METO1TAB87 PO; +PRED20TA PO; +RANO500T PO; +STEG5TAB PO; +TRUL0.5I SC
--- NOTE | 2019-11-10 17:30 | SLEEPCENT ---
DATE OF PROCEDURE: 11/09/2019 ORDERED BY: Dr. Barnes Nocturnal polysomnography was performed for the titration of pressure therapy in this patient with obstructive sleep apnea syndrome. Apnea-hypopnea index of 52.8. For testing the patient was fit with a ResMed AirFit F20 full face mask of large size, 4 cm of water pressure were applied to the circuit and the lights were extinguished. 7 hours and 43 minutes of data were reviewed. There were 388.5 minutes of sleep identified. Sleep latency was prolonged at 55.5 minutes. Rapid eye movement (REM) latency was prolonged at 187 minutes. Sleep architecture improved on optimal pressure therapy. Overall sleep efficiency was 84.8%. The patient's electrocardiogram showed a sinus rhythm with an average heart rate of 64 beats per minute. EEG showed reasonably normal waveforms for awake and sleep. Respiratory events were reasonably well palliated with continuous positive airway pressure (CPAP) at a pressure of +8. Significant limb activity persisted, but limb movement arousal index was only 5.9. IMPRESSION: Obstructive sleep apnea syndrome (G47.33). RECOMMENDATIONS: Nightly use of pressure therapy 8 cm of water.
== END ==
LOC: M SLEEP 19:39
PROVIDERS: ATTEND Internal Medicine Pulmonary Disease
DX: G47.33 Obstructive sleep apnea (adult) (pediatric) (principal)

== ENCOUNTER → 2020-02-23 | Outpatient (REF) | payer OTHER ==
[~2020-02-23] MED LIST changes: +CYCL-707 PO; -CYCL10TA PO
[2020-02-23 12:15] LABS: BASO # 0.1 10^3/uL (0.0-0.2); BASO % 0.7 % (0.0-1.0); EOS # 0.1 10^3/uL (0.0-0.5); EOS % 1.4 % (0.0-3.0); HEMATOCRIT 47.5 % (42.0-52.0); HEMOGLOBIN 15.7 g/dl (13.5-17.5); LYMPH # 2.1 10^3/uL (1.5-5.0); LYMPH % 22.1 % (24.0-44.0); MEAN CORPUSCULAR HGB CONC 33.1 g/dl (32.0-36.5); MEAN CORPUSCULAR VOLUME 87.8 fl (80.0-96.0); MONO # 0.8 10^3/uL (0.0-0.8); MONO % 8.4 % (0.0-5.0); NEUTROPHILS # 6.3 10^3/uL (1.5-8.5); NEUTROPHILS % 67.1 % (36.0-66.0); PLATELET COUNT, AUTOMATED 225 10^3/uL (150-450); RED BLOOD COUNT 5.41 10^6/uL (4.30-6.10); WHITE BLOOD COUNT 9.5 10^3/uL (4.0-10.0)
[2020-02-23 12:55] LABS: ALBUMIN 4.4 GM/DL (3.2-5.2); BILIRUBIN,TOTAL 0.6 MG/DL (0.2-1.0); CALCIUM LEVEL 9.9 MG/DL (8.5-10.1); CHOLESTEROL RISK RATIO 3.909 (<5); CREATININE FOR GFR 1.53 MG/DL (0.70-1.30); GLOMERULAR FILTRATION RATE 50.2 (>56); POTASSIUM SERUM 4.3 MEQ/L (3.5-5.1); TOTAL PROTEIN 7.5 GM/DL (6.4-8.2)
[2020-02-23 12:58] LABS: CREATININE, URINE 76.3 MG/DL; MALB URINE SIEMENS 28.2 MG/L; MAU/CREAT RATIO 36.9 MCG/MG (0.0-30.0)
[2020-02-23 14:53] LABS: HEMOGLOBIN A1c 8.6 %
== END ==
LOC: M SFHCLERA 09:51
PROVIDERS: ATTEND Family Medicine
DX: E11.8 Type 2 diabetes mellitus with unspecified complications (principal); R10.9 Unspecified abdominal pain

== ENCOUNTER → 2020-07-05 | Outpatient (REF) | payer OTHER ==
[~2020-07-05] MED LIST changes: -FLUO10CA15 PO; +FLUO10CA16 PO; -LISI-1046 PO; +LISI2.5T2 PO; -RANO500T PO; +RANO500T2 PO
[2020-07-05 16:08] LABS: CALCIUM LEVEL 9.5 MG/DL (8.5-10.1); CREATININE FOR GFR 1.62 MG/DL (0.70-1.30); GLOMERULAR FILTRATION RATE 46.8 (>56); POTASSIUM SERUM 4.3 MEQ/L (3.5-5.1)
[2020-07-05 16:42] LABS: HEMOGLOBIN A1c 7.2 %
== END ==
LOC: M LABDRWAD 09:06
PROVIDERS: ATTEND Family Medicine
DX: E11.9 Type 2 diabetes mellitus without complications (principal); N18.9 Chronic kidney disease, unspecified

== ENCOUNTER → 2020-08-15 | Outpatient (REF) | payer OTHER | LOC: M SFHCLERA 10:17 | PROVIDERS: ATTEND Nurse Practitioner Family | DX: J02.9 Acute pharyngitis, unspecified (principal) ==

== ENCOUNTER → 2020-09-23 | Outpatient (CLI) | payer OTHER | LOC: M LABSMTC 10:32 | PROVIDERS: ATTEND Pediatrics | DX: Z20.828 Contact with and (suspected) exposure to other viral communicable diseases (principal) ==

== ENCOUNTER → 2020-11-24 | Outpatient (CLI) | payer OTHER ==
[~2020-11-24] MED LIST changes: +GABA-282 PO; -GABA-843 PO; -GLYB5TA PO; +GLYB5TAB6 PO
[2020-11-24 16:25] LABS: BASO # 0.1 10^3/uL (0.0-0.2); BASO % 0.6 % (0.0-1.0); EOS # 0.1 10^3/uL (0.0-0.5); EOS % 1.2 % (0.0-3.0); HEMATOCRIT 46.4 % (42.0-52.0); HEMOGLOBIN 15.1 g/dl (13.5-17.5); LYMPH % 24.4 % (24.0-44.0); MEAN CORPUSCULAR HEMOGLOBIN 29.3 pg (27.0-33.0); MEAN CORPUSCULAR HGB CONC 32.5 g/dl (32.0-36.5); MEAN CORPUSCULAR VOLUME 90.1 fl (80.0-96.0); MONO # 0.7 10^3/uL (0.0-0.8); MONO % 8.7 % (0.0-5.0); NEUTROPHILS # 5.4 10^3/uL (1.5-8.5); NEUTROPHILS % 64.9 % (36.0-66.0); PLATELET COUNT, AUTOMATED 222 10^3/uL (150-450); RED BLOOD COUNT 5.15 10^6/uL (4.30-6.10); WHITE BLOOD COUNT 8.3 10^3/uL (4.0-10.0)
[2020-11-24 16:48] LABS: HEMOGLOBIN A1c 7.6 %
[2020-11-24 16:52] LABS: ALBUMIN 4.5 GM/DL (3.2-5.2); BILIRUBIN,TOTAL 0.6 MG/DL (0.2-1.0); CALCIUM LEVEL 9.3 MG/DL (8.5-10.1); CREATININE FOR GFR 1.66 MG/DL (0.70-1.30); GLOMERULAR FILTRATION RATE 45.5 (>56); POTASSIUM SERUM 3.9 MEQ/L (3.5-5.1); TOTAL PROTEIN 7.4 GM/DL (6.4-8.2)
[2020-11-24 17:01] LABS: MALB URINE SIEMENS 37.9 MG/L; MAU/CREAT RATIO 37.1 MCG/MG (0.0-30.0)
[2020-11-24 17:04] LABS: APPEARANCE, URINE CLEAR (CLEAR); BACTERIA, URINE AUTO NEGATIVE (NEGATIVE); BILIRUBIN, URINE AUTO NEGATIVE (NEGATIVE); BLOOD, URINE BLOOD NEGATIVE (NEGATIVE); COLOR, URINE YELLOW (YELLOW); GLUCOSE, URINE (UA) AUTO 3+ mg/dL (NEGATIVE); KETONE, URINE AUTO NEGATIVE (NEGATIVE); LEUKOCYTE ESTERASE, URINE AUTO NEGATIVE (NEGATIVE); NITRITE, URINE AUTO NEGATIVE (NEGATIVE); PROTEIN, URINE AUTO NEGATIVE (NEGATIVE); RBC, URINE AUTO 0 /HPF (0-3); SPECIFIC GRAVITY URINE AUTO 1.016 (1.002-1.035); SQUAMOUS EPITHELIAL CELL UR AU 0 /HPF (0-6); UROBILINOGEN, URINE AUTO 0.2 mg/dL (0.0-2.0); WBC, URINE AUTO 0 /HPF (0-3)
== END ==
LOC: M WUC 13:55
PROVIDERS: ATTEND Family Medicine
DX: E11.8 Type 2 diabetes mellitus with unspecified complications (principal); R14.0 Abdominal distension (gaseous); R79.89 Other specified abnormal findings of blood chemistry

== ENCOUNTER 2021-02-26 16:46 | Emergency (ER) | payer MEDICARE, OTHER ==
[~2021-02-26] VITALS: Ht 175.3 cm; Wt 102.4 kg
[2021-02-26 16:47] VITALS: BP 116/56
[2021-02-26] MEDS ORDERED: OMEP-221 (16:57)
[2021-02-26] MEDS ORDERED: LOSA25TA14 (16:57)
--- NOTE | 2021-02-26 17:26 | REP ---
INDICATION: PAIN/DECREASED ROM COMPARISON: None. TECHNIQUE: Internal rotation, external rotation, and Y view. FINDINGS: No acute fracture or dislocation. Acromioclavicular joint demonstrates mild cortical irregularity. The subacromial space is normal. No periarticular loose bodies are identified. A bulky osteophyte forming along the posterior aspect of the calcified glenoid rim cannot be excluded. The glenohumeral joint is otherwise normal and without fracture or dislocation. IMPRESSION: Degenerative changes as noted above including possible osteophyte forming along the posterior aspect of the glenoid rim. <Electronically signed by Eyal Santiago > 02/26/21 [id number]
== END 2021-02-26 17:47 | disposition home or self-care (01) ==
LOC: M ED 16:46
DX: M25.511 Pain in right shoulder (principal); E11.9 Type 2 diabetes mellitus without complications; E78.5 Hyperlipidemia, unspecified; I51.9 Heart disease, unspecified

== ENCOUNTER 2021-04-25 06:38 | Day surgery (SDC) | payer MEDICARE, OTHER ==
[~2021-04-25] VITALS: Ht 175.3 cm; Wt 93.0 kg
[~2021-04-25 06:38] MED LIST changes: +B12-1CHW PO; +FURO20TA2 PO; +GABA-283 PO; -GABA-845 PO; +LOSA25TA14; +MAGN400C PO; +NS 1,000 ML IV ONE; +OMEP-221
[2021-04-25] MEDS ORDERED: propofoL 200 MG/20 ML VIAL As Ordered ONE (06:59)
[2021-04-25] MEDS ORDERED: LIDOCAINE 2% 100MG/5ML SDV (FOR ANES.) As Ordered ONE (06:59)
--- NOTE | 2021-04-25 08:13 | ROOR ---
Patient Name: Jose De Jesus Connolly Procedure Date: 04/25/2021 7:31 AM Date of : 1960 Age: 61 Room: [facility] Gender: Male Note Status: Finalized Procedure: Upper GI endoscopy Indications: Dyspepsia Providers: Rakesh Farmer MD Referring MD: Gary Blanchard DO Requesting Provider: Medicines: Monitored Anesthesia Care Complications: No immediate complications. Procedure: Pre-Anesthesia Assessment: - Prior to the procedure, a History and Physical was performed, and patient medications and allergies were reviewed. The patient is competent. The risks and benefits of the procedure and the sedation options and risks were discussed with the patient. All questions were answered and informed consent was obtained. Patient identification and proposed procedure were verified by the physician, the nurse and the anesthesiologist in the procedure room. Mental Status Examination: alert and oriented. Airway Examination: normal oropharyngeal airway and neck mobility. Respiratory Examination: clear to auscultation. CV Examination: normal. Prophylactic Antibiotics: The patient does not require prophylactic antibiotics. Prior Anticoagulants: The patient has taken no previous anticoagulant or antiplatelet agents. ASA Grade Assessment: II - A patient with mild systemic disease. After reviewing the risks and benefits, the patient was deemed in satisfactory condition to undergo the procedure. The anesthesia plan was to use monitored anesthesia care (MAC). Immediately prior to administration of medications, the patient was re-assessed for adequacy to receive sedatives. The heart rate, respiratory rate, oxygen saturations, blood pressure, adequacy of pulmonary ventilation, and response to care were monitored throughout the procedure. The physical status of the patient was re-assessed after the procedure. The Endoscope was introduced through the mouth, and advanced to the second part of duodenum. The upper GI endoscopy was accomplished without difficulty. The patient tolerated the procedure well. Findings: The examined esophagus was normal. The Z-line was regular and was found 39 cm from the incisors. Scattered moderate inflammation characterized by erythema, friability and granularity was found in the gastric antrum. Biopsies were taken with a cold forceps for Helicobacter pylori testing. Verification of patient identification for the specimen was done by the physician and nurse using the patient's name, date and medical record number. Estimated blood loss was minimal. The duodenal bulb and second portion of the duodenum were normal. Biopsies for histology were taken with a cold forceps for evaluation of celiac disease. Impression: - Normal esophagus. - Z-line regular, 39 cm from the incisors. - Gastritis. Biopsied. - Normal duodenal bulb and second portion of the duodenum. Biopsied. Recommendation: - Patient has a contact number available for emergencies. The signs and symptoms of potential delayed complications were discussed with the patient. Return to normal activities tomorrow. Written discharge instructions were provided to the patient. - High fiber diet. - Continue present medications. - Await pathology results. - Follow an antireflux regimen. - Telephone GI clinic for pathology results in 2 weeks. - Return to primary care physician. Procedure Code(s): --- Professional --- 28401, Esophagogastroduodenoscopy, flexible, transoral; with biopsy, single or multiple Diagnosis Code(s): --- Professional --- K29.70, Gastritis, unspecified, without bleeding R10.13, Epigastric pain CPT copyright 2019 [employer]. All rights reserved. The codes documented in this report are preliminary and upon orthopedic coder review may be revised to meet current compliance requirements. Rakesh Farmer MD Rakesh Farmer MD 04/25/2021 8:13:14 AM Electronically signed by Rakesh Farmer MD Number of Addenda: 0 Note Initiated On: 04/25/2021 7:31 AM Estimated Blood Loss: Estimated blood loss was minimal.
--- NOTE | 2021-04-25 08:16 | ROOR ---
Patient Name: Jose De Jesus Connolly Procedure Date: 04/25/2021 7:31 AM Date of : 1960 Age: 61 Room: [facility] Gender: Male Note Status: Finalized Procedure: Colonoscopy Indications: Screening for colorectal malignant neoplasm Providers: Rakesh Farmer MD Referring MD: Gary Blanchard DO Requestsuzi Provider: Medicines: Monitored Anesthesia Care Complications: No immediate complications. Procedure: Pre-Anesthesia Assessment: - Prior to the procedure, a History and Physical was performed, and patient medications and allergies were reviewed. The patient is competent. The risks and benefits of the procedure and the sedation options and risks were discussed with the patient. All questions were answered and informed consent was obtained. Patient identification and proposed procedure were verified by the physician, the nurse and the anesthesiologist in the procedure room. Mental Status Examination: alert and oriented. Airway Examination: normal oropharyngeal airway and neck mobility. Respiratory Examination: clear to auscultation. CV Examination: normal. Prophylactic Antibiotics: The patient does not require prophylactic antibiotics. Prior Anticoagulants: The patient has taken no previous anticoagulant or antiplatelet agents. ASA Grade Assessment: II - A patient with mild systemic disease. After reviewing the risks and benefits, the patient was deemed in satisfactory condition to undergo the procedure. The anesthesia plan was to use monitored anesthesia care (MAC). Immediately prior to administration of medications, the patient was re-assessed for adequacy to receive sedatives. The heart rate, respiratory rate, oxygen saturations, blood pressure, adequacy of pulmonary ventilation, and response to care were monitored throughout the procedure. The physical status of the patient was re-assessed after the procedure. The Colonoscope was introduced through the anus and advanced to the terminal ileum, with identification of the appendiceal orifice and IC valve. The colonoscopy was performed without difficulty. The patient tolerated the procedure well. The quality of the bowel preparation was good. The terminal ileum, ileocecal valve, appendiceal orifice, and rectum were photographed. Scope insertion time was 2 minutes. Scope withdrawal time was 9 minutes. The total duration of the procedure was 12 minutes. Findings: The perianal and digital rectal examinations were normal. The terminal ileum appeared normal. Four sessile polyps were found in the recto-sigmoid colon. The polyps were 3 to 8 mm in size. These polyps were removed with a hot snare. Resection and retrieval were complete. Verification of patient identification for the specimen was done by the physician and nurse using the patient's name, date and medical record number. Estimated blood loss was minimal. Non-bleeding external and internal hemorrhoids were found during retroflexion. The hemorrhoids were large. Impression: - The examined portion of the ileum was normal. - Four 3 to 8 mm polyps at the recto-sigmoid colon, removed with a hot snare. Resected and retrieved. - Non-bleeding external and internal hemorrhoids. Recommendation: - Patient has a contact number available for emergencies. The signs and symptoms of potential delayed complications were discussed with the patient. Return to normal activities tomorrow. Written discharge instructions were provided to the patient. - High fiber diet. - Continue present medications. - Await pathology results. - Repeat colonoscopy in 3 - 5 years for surveillance based on pathology results. - Telephone GI clinic for pathology results in 2 weeks. - Preparation H suppository: Insert rectally daily for 5 days ( OTC medication if having rectal bleeding) - Return to primary care physician. Procedure Code(s): --- Professional --- 71746, Colonoscopy, flexible; with removal of tumor(s), polyp(s), or other lesion(s) by snare technique Diagnosis Code(s): --- Professional --- Z12.11, Encounter for screening for malignant neoplasm of colon K64.8, Other hemorrhoids K63.5, Polyp of colon CPT copyright 2019 [place]. All rights reserved. The codes documented in this report are preliminary and upon certified medical coder review may be revised to meet current compliance requirements. Rakesh Farmer MD Rakesh Farmer MD 04/25/2021 8:15:51 AM Electronically signed by Rakesh Farmer MD Number of Addenda: 0 Note Initiated On: 04/25/2021 7:31 AM Estimated Blood Loss: Estimated blood loss was minimal.
[2021-04-25 08:30] VITALS: BP 128/81
== END 2021-04-25 08:53 | disposition home or self-care (01) ==
LOC: M OPP 06:38
PROVIDERS: ATTEND Internal Medicine Gastroenterology
DX: Z12.11 Encounter for screening for malignant neoplasm of colon (principal); K64.8 Other hemorrhoids; K63.5 Polyp of colon; K29.70 Gastritis, unspecified, without bleeding; R10.13 Epigastric pain; Z79.4 Long term (current) use of insulin; Z79.82 Long term (current) use of aspirin; Z79.899 Other long term (current) drug therapy; Z95.5 Presence of coronary angioplasty implant and graft

== ENCOUNTER 2021-06-04 12:56 | Emergency (ER) | payer MEDICARE, OTHER ==
[~2021-06-04] VITALS: Ht 175.3 cm; Wt 93.7 kg
[~2021-06-04 12:56] MED LIST changes: -NS 1,000 ML IV ONE
[2021-06-04] MEDS ORDERED: MECLIZINE 25 MG TABLET PO ONE (14:10)
[2021-06-04 14:55] LABS: BASO # 0.1 10^3/uL (0.0-0.2); BASO % 0.6 % (0.0-1.0); EOS # 0.2 10^3/uL (0.0-0.5); EOS % 1.7 % (0.0-3.0); HEMATOCRIT 45.5 % (42.0-52.0); HEMOGLOBIN 14.9 g/dl (13.5-17.5); LYMPH # 1.8 10^3/uL (1.5-5.0); LYMPH % 19.2 % (24.0-44.0); MEAN CORPUSCULAR HEMOGLOBIN 29.7 pg (27.0-33.0); MEAN CORPUSCULAR HGB CONC 32.7 g/dl (32.0-36.5); MEAN CORPUSCULAR VOLUME 90.6 fl (80.0-96.0); MONO # 0.6 10^3/uL (0.0-0.8); MONO % 6.7 % (2.0-8.0); NEUTROPHILS # 6.7 10^3/uL (1.5-8.5); NEUTROPHILS % 71.6 % (36.0-66.0); PLATELET COUNT, AUTOMATED 216 10^3/uL (150-450); RED BLOOD COUNT 5.02 10^6/uL (4.30-6.10); WHITE BLOOD COUNT 9.3 10^3/uL (4.0-10.0)
[2021-06-04 15:30] LABS: BLOOD UREA NITROGEN 28 MG/DL (7-18); CALCIUM LEVEL 9.1 MG/DL (8.5-10.1); CARBON DIOXIDE LEVEL 25 MEQ/L (21-32); CHLORIDE LEVEL 106 MEQ/L (98-107); CK-MB VALUE MASS 1.3 NG/ML (<3.6); CPK CREATINE PHOSPHOKINASE 45 U/L (39-308); CREATININE FOR GFR 1.35 MG/DL (0.70-1.30); GLOMERULAR FILTRATION RATE 57.6 (>56); GLUCOSE, FASTING 119 MG/DL (70-100); MB/CK RELATIVE INDEX 2.89 (< OR =4); POTASSIUM SERUM 4.6 MEQ/L (3.5-5.1); SODIUM LEVEL 138 MEQ/L (136-145); TROPONIN I < 0.02 NG/ML (< 0.10)
--- NOTE | 2021-06-04 16:07 | REP ---
INDICATION: Syncope. COMPARISON: None. TECHNIQUE: Contiguous axial projection images were obtained through the head. 2D coronal reconstructions were performed. FINDINGS: There is mild diffuse cerebral atrophy with concomitant ventriculomegaly. There is no evidence of acute intracranial hemorrhage or infarction. There are no abnormal intracranial masses or mass effect. The skull base and calvarium are normal. The intraorbital contents are normal. The mastoid air cells and the visualized paranasal sinuses are clear. The visualized extracranial soft tissues are normal. IMPRESSION: No evidence of acute intracranial pathology. Mild cerebral atrophy. <Electronically signed by Joel Mckeon > 06/04/21 [id number]
[2021-06-04] MEDS ORDERED: FLON27.5 NARES (17:06)
[2021-06-04] MEDS ORDERED: MECL1TAB31 PO (17:06)
[2021-06-04] MEDS ORDERED: vestibular PT ×2 (17:10→17:11)
[2021-06-04 17:15] VITALS: BP 140/69
--- NOTE | 2021-06-05 19:42 | ECGEPIP ---
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
== END 2021-06-04 17:26 | disposition home or self-care (01) ==
LOC: M ED 12:56
DX: H65.01 Acute serous otitis media, right ear (principal); R42 Dizziness and giddiness; G31.9 Degenerative disease of nervous system, unspecified; E11.9 Type 2 diabetes mellitus without complications; I10 Essential (primary) hypertension; E78.5 Hyperlipidemia, unspecified; F33.9 Major depressive disorder, recurrent, unspecified; Z79.82 Long term (current) use of aspirin; Z79.899 Other long term (current) drug therapy

== ENCOUNTER → 2021-06-12 | Outpatient (CLI) | payer MEDICARE, OTHER ==
[~2021-06-12] MED LIST changes: +FLON27.5 NARES; -LISI2.5T2 PO; +LISI2.5T9 PO; +MECL1TAB31 PO; -VERA180T3 PO; +VERA180T50 PO; +vestibular PT
[2021-06-12 17:27] LABS: CREATININE FOR GFR 1.49 MG/DL (0.70-1.30)
[2021-06-12 17:28] LABS: CALCIUM LEVEL 9.4 MG/DL (8.5-10.1); GLOMERULAR FILTRATION RATE 51.4 (>56); POTASSIUM SERUM 4.1 MEQ/L (3.5-5.1)
[2021-06-12 17:42] LABS: HEMOGLOBIN A1c 6.2 %
== END ==
LOC: M WUC 14:45
PROVIDERS: ATTEND Family Medicine
DX: E11.8 Type 2 diabetes mellitus with unspecified complications (principal)
CPT/HCPCS: 36415; 80048; 83036; G0463

== ENCOUNTER → 2022-02-01 | Outpatient (CLI) | payer MEDICARE, OTHER ==
[~2022-02-01] MED LIST changes: +FLUO-96 PO; -FLUO10CA16 PO; +FLUO10CA18 PO; -FLUO20CA20 PO; +LOSA25TA13; -LOSA25TA14; -OMEP-221; +OMEP40CA5; +VERA180T42 PO; -VERA180T50 PO
[2022-02-01 16:15] LABS: CALCIUM LEVEL 9.4 MG/DL (8.5-10.1); CHOLESTEROL RISK RATIO 5.318 (<5); CREATININE FOR GFR 1.52 MG/DL (0.70-1.30); GLOMERULAR FILTRATION RATE 50.2 (>56); POTASSIUM SERUM 4.5 MEQ/L (3.5-5.1)
[2022-02-01 16:24] LABS: MALB URINE SIEMENS 27.8 MG/L; MAU/CREAT RATIO 24.8 MCG/MG (0.0-30.0)
[2022-02-01 17:38] LABS: HEMOGLOBIN A1c 6.3 %
== END ==
LOC: M WUC 10:10
PROVIDERS: ATTEND Family Medicine
DX: E11.8 Type 2 diabetes mellitus with unspecified complications (principal); E78.2 Mixed hyperlipidemia

== ENCOUNTER → 2022-05-18 | Outpatient (CLI) | payer MEDICARE, OTHER ==
[2022-05-18 12:26] LABS: BASO # 0.1 10^3/uL (0.0-0.2); BASO % 0.8 % (0.0-1.0); EOS # 0.1 10^3/uL (0.0-0.5); EOS % 1.7 % (0.0-3.0); HEMATOCRIT 43.3 % (42.0-52.0); HEMOGLOBIN 13.8 g/dl (13.5-17.5); LYMPH # 1.4 10^3/uL (1.5-5.0); LYMPH % 23.5 % (24.0-44.0); MEAN CORPUSCULAR HEMOGLOBIN 29.3 pg (27.0-33.0); MEAN CORPUSCULAR HGB CONC 31.9 g/dl (32.0-36.5); MEAN CORPUSCULAR VOLUME 91.9 fl (80.0-96.0); MONO # 0.6 10^3/uL (0.0-0.8); MONO % 10.3 % (2.0-8.0); NEUTROPHILS # 3.8 10^3/uL (1.5-8.5); NEUTROPHILS % 63.5 % (36.0-66.0); PLATELET COUNT, AUTOMATED 162 10^3/uL (150-450); RED BLOOD COUNT 4.71 10^6/uL (4.30-6.10)
[2022-05-18 12:41] LABS: CREATININE FOR GFR 1.4 MG/DL (0.70-1.30); POTASSIUM SERUM 4.4 MEQ/L (3.5-5.1)
== END ==
LOC: M WUC 09:41
PROVIDERS: ATTEND Internal Medicine Cardiovascular Disease
DX: I20.0 Unstable angina (principal); R06.09 Other forms of dyspnea

== ENCOUNTER → 2022-05-23 | Outpatient (CLI) | payer MEDICARE, OTHER | LOC: M LABSMTC 09:21 | PROVIDERS: ATTEND Internal Medicine Cardiovascular Disease | DX: Z20.822 Contact with and (suspected) exposure to COVID-19 (principal) ==

== ENCOUNTER → 2022-05-31 | Outpatient (CLI) | payer MEDICARE, OTHER ==
[2022-05-31 13:00] LABS: BILIRUBIN,TOTAL 0.3 MG/DL (0.2-1.0); CALCIUM LEVEL 9.4 MG/DL (8.8-10.2); CREATININE FOR GFR 1.38 MG/DL (0.70-1.30); POTASSIUM SERUM 4.7 MEQ/L (3.5-5.1); TOTAL PROTEIN 6.8 GM/DL (6.4-8.2)
== END ==
LOC: M WUC 10:49
PROVIDERS: ATTEND Internal Medicine Cardiovascular Disease
DX: Z00.00 Encounter for general adult medical examination without abnormal findings (principal)

== ENCOUNTER → 2022-05-31 | Outpatient (CLI) | payer MEDICARE, OTHER ==
[2022-05-31 12:59] LABS: CREATININE FOR GFR 1.37 MG/DL (0.70-1.30); GLOMERULAR FILTRATION RATE 56.4 (>49)
== END ==
LOC: M WUC 10:46
PROVIDERS: ATTEND Internal Medicine Cardiovascular Disease
DX: Z95.5 Presence of coronary angioplasty implant and graft (principal)

== ENCOUNTER 2022-08-13 13:39 | Emergency (ER) | payer MEDICARE, OTHER ==
[~2022-08-13] VITALS: Ht 175.3 cm; Wt 100.9 kg
[2022-08-13 14:44] LABS: BASO # 0.1 10^3/uL (0.0-0.2); BASO % 0.5 % (0.0-1.0); EOS # 0.1 10^3/uL (0.0-0.5); EOS % 0.3 % (0.0-3.0); HEMATOCRIT 44.7 % (42.0-52.0); HEMOGLOBIN 14.9 g/dl (13.5-17.5); LYMPH % 5.7 % (24.0-44.0); MEAN CORPUSCULAR HEMOGLOBIN 29.9 pg (27.0-33.0); MEAN CORPUSCULAR HGB CONC 33.3 g/dl (32.0-36.5); MEAN CORPUSCULAR VOLUME 89.8 fl (80.0-96.0); MONO # 1.2 10^3/uL (0.0-0.8); MONO % 6.7 % (2.0-8.0); NEUTROPHILS # 14.9 10^3/uL (1.5-8.5); NEUTROPHILS % 86.3 % (36.0-66.0); PLATELET COUNT, AUTOMATED 243 10^3/uL (150-450); RED BLOOD COUNT 4.98 10^6/uL (4.30-6.10); WHITE BLOOD COUNT 17.3 10^3/uL (4.0-10.0)
[2022-08-13 15:31] LABS: CALCIUM LEVEL 9.3 MG/DL (8.8-10.2); CREATININE FOR GFR 1.53 MG/DL (0.70-1.30); GLOMERULAR FILTRATION RATE 49.7 (>49); POTASSIUM SERUM 4.1 MEQ/L (3.5-5.1)
[2022-08-13] MEDS ORDERED: NS 1,000 ML IV ONE (15:35)
[2022-08-13] MEDS ORDERED: PHENAZOPYRIDINE 100 MG TAB PO ONE ×2 (15:35→17:15)
[2022-08-13] MEDS ORDERED: ISOVUE-370 76% 100ML VIAL As Ordered ONE (15:43)
[2022-08-13 16:08] VITALS: BP 136/68
[2022-08-13] MEDS ORDERED: CIPR500T39 PO (17:12)
[2022-08-13] MEDS ORDERED: BACTRIM 160MG/800MG DS TAB PO ONE (17:15)
== END 2022-08-13 17:30 | disposition home or self-care (01) ==
LOC: M ED 13:39
DX: N30.01 Acute cystitis with hematuria (principal); E11.9 Type 2 diabetes mellitus without complications; I10 Essential (primary) hypertension; E78.5 Hyperlipidemia, unspecified; R51.9 Headache, unspecified; Z87.442 Personal history of urinary calculi; Z79.82 Long term (current) use of aspirin; Z79.4 Long term (current) use of insulin; Z79.899 Other long term (current) drug therapy
CPT/HCPCS: 74177; 80048; 81000; 81015; 85025; 87088; 87186; 96360; 96361; 99283; Q9967

== ENCOUNTER 2022-08-14 21:23 | Inpatient (IN) | payer MEDICARE, OTHER ==
[~2022-08-14] VITALS: Ht 175.3 cm; Wt 103.0 kg
[~2022-08-14 21:23] MED LIST changes: +CIPR500T39 PO
[2022-08-14] MEDS ORDERED: ACETAMINOPHEN TAB 650MG DOSE (2X325MG) PO ONE (21:40)
[2022-08-14] MEDS ORDERED: NS 2,000 ML in IV 1 EA IV ONE (21:45)
[2022-08-14 21:49] LABS: BASO % 0.2 % (0.0-1.0); EOS % 0.2 % (0.0-3.0); HEMATOCRIT 38.1 % (42.0-52.0); LYMPH # 0.6 10^3/uL (1.5-5.0); LYMPH % 4.8 % (24.0-44.0); MEAN CORPUSCULAR HEMOGLOBIN 29.8 pg (27.0-33.0); MEAN CORPUSCULAR HGB CONC 33.6 g/dl (32.0-36.5); MEAN CORPUSCULAR VOLUME 88.8 fl (80.0-96.0); MONO # 0.7 10^3/uL (0.0-0.8); MONO % 5.3 % (2.0-8.0); NEUTROPHILS # 11.2 10^3/uL (1.5-8.5); NEUTROPHILS % 88.9 % (36.0-66.0); PLATELET COUNT, AUTOMATED 174 10^3/uL (150-450); RED BLOOD COUNT 4.29 10^6/uL (4.30-6.10); WHITE BLOOD COUNT 12.6 10^3/uL (4.0-10.0)
[2022-08-14] MEDS ORDERED: PIPERACILLIN/TAZOBACTAM SOD 3.375 GM in D5W MINI-BAG PLUS 50 ML IV ONE (21:55)
[2022-08-14 22:04] LABS: HEMOGLOBIN 12.8 g/dl (13.5-17.5)
[2022-08-14 22:28] LABS: CPK CREATINE PHOSPHOKINASE 131 U/L (39-308)
[2022-08-14 22:40] LABS: ALBUMIN 3.5 GM/DL (3.2-5.2); BILIRUBIN,DIRECT 0.2 MG/DL (0.0-0.2); BILIRUBIN,TOTAL 1.2 MG/DL (0.2-1.0); CALCIUM LEVEL 8.3 MG/DL (8.8-10.2); CREATININE FOR GFR 1.49 MG/DL (0.70-1.30); GLOMERULAR FILTRATION RATE 51.2 (>49); POTASSIUM SERUM 4.6 MEQ/L (3.5-5.1); THYROID STIMULATING HORMONE 2.16 uIU/ML (0.358-3.740); TOTAL PROTEIN 6.6 GM/DL (6.4-8.2)
[2022-08-14 22:50] LABS: RSV AMPLIFICATION NEGATIVE (NEGATIVE)
[2022-08-15] MEDS ORDERED: GLUCAGON INJ 1MG VIAL SC PRN (00:35)
[2022-08-15] MEDS ORDERED: GLUCOSE 4GM CHEW TABLET PO PRN (00:35)
[2022-08-15] MEDS ORDERED: ACETAMINOPHEN TAB 650MG DOSE (2X325MG) PO PRN (00:35)
[2022-08-15] MEDS: NS 1,000 ML IV SCH ×2 (00:35→04:16)
[2022-08-15] MEDS ORDERED: DEXTROSE 50% 50 ML SYRINGE IV PRN (00:35)
[2022-08-15] MEDS ORDERED: VITA500T40 PO (02:06)
[2022-08-15] MEDS ORDERED: OMEP40CA5 PO (02:06)
[2022-08-15] MEDS ORDERED: CIPR-249 PO (02:06)
[2022-08-15] MEDS ORDERED: AMLO1TAB24 PO (02:06)
[2022-08-15] MEDS ORDERED: FLON1SPR (02:06)
[2022-08-15] MEDS ORDERED: DULA3PEN SC (02:06)
[2022-08-15] MEDS ORDERED: FLUO40CA PO (02:06)
[2022-08-15] MEDS ORDERED: HOME MED LIST COMPLETE! XX SCH (02:10)
[2022-08-15 03:55] VITALS: BP 158/77
[2022-08-15] MEDS: PIPERACILLIN/TAZOBACTAM SOD 3.375 GM in D5W MINI-BAG PLUS 50 ML IV SCH ×2 (04:17→09:34)
[2022-08-15] MEDS ORDERED: NITROGLYCERIN 0.4 MG SUBL TABLET SL PRN (04:25)
[2022-08-15] MEDS ORDERED: FLUTICASONE PROP 0.05% NASAL SPRAY 16 GM (FLONASE) PRN (04:25)
[2022-08-15 05:52] VITALS: BP 158/74
[2022-08-15 06:30] LABS: HEMATOCRIT 38.6 % (42.0-52.0); HEMOGLOBIN 12.6 g/dl (13.5-17.5); MEAN CORPUSCULAR HEMOGLOBIN 29.9 pg (27.0-33.0); MEAN CORPUSCULAR HGB CONC 32.6 g/dl (32.0-36.5); MEAN CORPUSCULAR VOLUME 91.7 fl (80.0-96.0); PLATELET COUNT, AUTOMATED 158 10^3/uL (150-450); RED BLOOD COUNT 4.21 10^6/uL (4.30-6.10); WHITE BLOOD COUNT 8.9 10^3/uL (4.0-10.0)
[2022-08-15 06:40] LABS: INR 1.08; PROTHROMBIN TIME 14.2 SECONDS (12.5-14.5)
[2022-08-15 07:01] LABS: CALCIUM LEVEL 8.5 MG/DL (8.8-10.2); CREATININE FOR GFR 1.4 MG/DL (0.70-1.30)
[2022-08-15] MEDS: INSULIN LISPRO (NovoLOG) PER UNIT SC SCH ×3 (08:41→18:25)
[2022-08-15] MEDS: METOPROLOL TART 25 MG TABLET PO SCH ×2 (09:34→21:21)
[2022-08-15] MEDS: FLUoxetine 20MG CAP PO SCH (09:34)
[2022-08-15] MEDS: ASPIRIN 81MG ENTERIC TABLET PO SCH (09:34)
[2022-08-15] MEDS: OMEPRAZOLE 20MG CAP PO SCH (09:34)
[2022-08-15] MEDS: RANOLAZINE 500 MG ER TAB PO SCH (09:34)
[2022-08-15] MEDS: DOCUSATE SODIUM 100MG CAPSULE PO SCH ×2 (09:34→21:21)
[2022-08-15] MEDS: CLOPIDOGREL 75 MG TAB PO SCH (09:34)
[2022-08-15] MEDS: VERAPAMIL 180MG EXTENDED RELEASE TABLET PO SCH (09:35)
[2022-08-15] MEDS: amLODIPine 5 MG TAB PO SCH (09:35)
[2022-08-15 14:00] VITALS: BP 137/71
[2022-08-15] MEDS: HEPARIN SOD (PORCINE) 5000UNITS/ML 1ML VIAL/SYRINGE SQ SCH ×2 (15:10→21:21)
[2022-08-15] MEDS ORDERED: cefTRIAXone SOD 1 GM in D5W MINI-BAG PLUS 50 ML IV SCH (16:00)
[2022-08-15] MEDS ORDERED: cefTRIAXone SOD 2 GM in D5W MINI-BAG PLUS 50 ML IV SCH (16:00)
[2022-08-15] MEDS ORDERED: INSULIN LISPRO (NovoLOG) PER UNIT SC SCH (21:00)
[2022-08-15] MEDS ORDERED: ATORVASTATIN 20 MG TAB PO SCH (21:00)
[2022-08-15] MEDS ORDERED: GABAPENTIN 300 MG CAP PO SCH (21:00)
[2022-08-15 21:01] VITALS: BP 132/62
[2022-08-16] MEDS: HEPARIN SOD (PORCINE) 5000UNITS/ML 1ML VIAL/SYRINGE SQ SCH (05:25)
[2022-08-16 05:28] VITALS: BP 126/73
[2022-08-16 06:54] LABS: HEMATOCRIT 36.5 % (42.0-52.0); HEMOGLOBIN 12.3 g/dl (13.5-17.5); MEAN CORPUSCULAR HEMOGLOBIN 30.4 pg (27.0-33.0); MEAN CORPUSCULAR HGB CONC 33.7 g/dl (32.0-36.5); MEAN CORPUSCULAR VOLUME 90.1 fl (80.0-96.0); PLATELET COUNT, AUTOMATED 154 10^3/uL (150-450); RED BLOOD COUNT 4.05 10^6/uL (4.30-6.10)
[2022-08-16 07:30] LABS: CALCIUM LEVEL 8.6 MG/DL (8.8-10.2); CREATININE FOR GFR 1.3 MG/DL (0.70-1.30); GLOMERULAR FILTRATION RATE 59.9 (>49); POTASSIUM SERUM 3.9 MEQ/L (3.5-5.1)
[2022-08-16] MEDS: INSULIN LISPRO (NovoLOG) PER UNIT SC SCH ×2 (08:33→12:00)
[2022-08-16] MEDS: CLOPIDOGREL 75 MG TAB PO SCH (08:34)
[2022-08-16] MEDS: ASPIRIN 81MG ENTERIC TABLET PO SCH (08:34)
[2022-08-16] MEDS: amLODIPine 5 MG TAB PO SCH (08:34)
[2022-08-16] MEDS: DOCUSATE SODIUM 100MG CAPSULE PO SCH (08:34)
[2022-08-16] MEDS: VERAPAMIL 180MG EXTENDED RELEASE TABLET PO SCH (08:35)
[2022-08-16] MEDS: FLUoxetine 20MG CAP PO SCH (08:35)
[2022-08-16 08:36] VITALS: BP 136/87
[2022-08-16] MEDS: RANOLAZINE 500 MG ER TAB PO SCH (08:36)
[2022-08-16] MEDS: METOPROLOL TART 25 MG TABLET PO SCH (08:36)
[2022-08-16] MEDS: OMEPRAZOLE 20MG CAP PO SCH (08:46)
[2022-08-16] MEDS ORDERED: LEVO1TAB40 PO (10:23)
== END 2022-08-16 13:05 | disposition home or self-care (01) | DRG 872 ==
LOC: EDBD 21:23 → M ED 21:23 → M ED INP 08-15 00:32 → M MS5PR 08-15 03:59
PROVIDERS: ADMIT Internal Medicine; ATTEND Internal Medicine
DX: A41.9 Sepsis, unspecified organism (principal); N39.0 Urinary tract infection, site not specified; I42.1 Obstructive hypertrophic cardiomyopathy; I25.10 Atherosclerotic heart disease of native coronary artery without angina pectoris; K21.9 Gastro-esophageal reflux disease without esophagitis; E78.5 Hyperlipidemia, unspecified; I12.9 Hypertensive chronic kidney disease with stage 1 through stage 4 chronic kidney disease, or unspecified chronic kidney disease; E11.22 Type 2 diabetes mellitus with diabetic chronic kidney disease; N18.31 Chronic kidney disease, stage 3a; B96.20 Unspecified Escherichia coli [E. coli] as the cause of diseases classified elsewhere; F41.9 Anxiety disorder, unspecified; F32.A Depression, unspecified; Z95.2 Presence of prosthetic heart valve; Z79.82 Long term (current) use of aspirin; Z79.899 Other long term (current) drug therapy

== ENCOUNTER → 2022-09-14 | Outpatient (REF) | payer MEDICARE, OTHER ==
[~2022-09-14] MED LIST changes: +AMLO1TAB24 PO; +CIPR-249 PO; +DULA3PEN SC; +FLON1SPR; +FLUO40CA PO; +LEVO1TAB40 PO; +OMEP40CA5 PO; +VITA500T40 PO
[2022-09-14 14:45] LABS: APPEARANCE, URINE MANUAL CLEAR (CLEAR); COLOR, URINE MANUAL YELLOW (YELLOW)
[2022-09-14 14:48] LABS: BILIRUBIN, URINE MANUAL NEGATIVE (NEGATIVE); BLOOD URINE MANUAL NEGATIVE (NEGATIVE); GLUCOSE, URINE (UA) MANUAL 1+(100 MG/DL) mg/dL (NEGATIVE); KETONE, URINE MANUAL NEGATIVE (NEGATIVE); LEUKOCYTE ESTERASE, URINE MAN NEGATIVE (NEGATIVE); NITRITE, URINE MANUAL NEGATIVE (NEGATIVE); PROTEIN, URINE MANUAL NEGATIVE (NEGATIVE); SPECIFIC GRAVITY,URINE MANUAL 1.015 (1.002-1.035); UROBILINOGEN, URINE MANUAL NORMAL (NORMAL)
== END ==
LOC: M SMT 12:55
PROVIDERS: ATTEND Physician Assistant
DX: N39.0 Urinary tract infection, site not specified (principal)

== ENCOUNTER → 2022-09-24 | Outpatient (CLI) | payer MEDICARE, OTHER | LOC: M RAD 13:56 | PROVIDERS: ATTEND Physician Assistant | DX: N39.0 Urinary tract infection, site not specified (principal) ==

== ENCOUNTER 2022-11-14 16:14 | Emergency (ER) | payer MEDICARE, OTHER ==
[~2022-11-14] VITALS: Ht 175.3 cm; Wt 105.0 kg
[2022-11-14] MEDS ORDERED: MAGN400T2 (16:25)
[2022-11-14 17:01] LABS: BASO # 0.1 10^3/uL (0.0-0.2); BASO % 0.9 % (0.0-1.0); EOS # 0.1 10^3/uL (0.0-0.5); EOS % 1.7 % (0.0-3.0); HEMATOCRIT 41.2 % (42.0-52.0); HEMOGLOBIN 13.7 g/dl (13.5-17.5); LYMPH # 1.4 10^3/uL (1.5-5.0); LYMPH % 21.4 % (24.0-44.0); MEAN CORPUSCULAR HEMOGLOBIN 29.9 pg (27.0-33.0); MEAN CORPUSCULAR HGB CONC 33.3 g/dl (32.0-36.5); MONO # 0.6 10^3/uL (0.0-0.8); MONO % 9.2 % (2.0-8.0); NEUTROPHILS # 4.3 10^3/uL (1.5-8.5); NEUTROPHILS % 66.5 % (36.0-66.0); PLATELET COUNT, AUTOMATED 191 10^3/uL (150-450); RED BLOOD COUNT 4.58 10^6/uL (4.30-6.10); WHITE BLOOD COUNT 6.4 10^3/uL (4.0-10.0)
[2022-11-14 17:28] LABS: LIPASE 64 U/L (12-53)
[2022-11-14 17:29] LABS: BILIRUBIN,DIRECT 0.3 MG/DL (<0.4)
[2022-11-14 17:30] LABS: ALBUMIN 4.5 G/DL (3.2-5.2); ALKALINE PHOSPHATASE 110 U/L (46-116); ALT/SGPT 31 U/L (7.0-40); AST/SGOT 20 U/L (<34); BILIRUBIN,TOTAL 0.8 MG/DL (0.3-1.2); BLOOD UREA NITROGEN 18 MG/DL (9-23); CALCIUM LEVEL 9.9 MG/DL (8.3-10.6); CARBON DIOXIDE LEVEL 30 MMOL/L (20-31); CHLORIDE LEVEL 101 MMOL/L (98-107); CK-MB VALUE MASS 1.4 NG/ML (<3.6); CPK CREATINE PHOSPHOKINASE 111 U/L (46-171); CREATININE FOR GFR 1.14 MG/DL (0.70-1.30); GLOMERULAR FILTRATION RATE > 60.0 (>49); GLUCOSE, FASTING 197 MG/DL (74-106); MB/CK RELATIVE INDEX 1.26 (< OR =4); POTASSIUM SERUM 4.4 MMOL/L (3.5-5.1); SODIUM LEVEL 139 MMOL/L (136-145); TOTAL PROTEIN 7.5 G/DL (5.7-8.2)
[2022-11-14 17:32] LABS: FREE T4 1.01 NG/DL (0.89-1.76); THYROID STIMULATING HORMONE 3.834 uIU/ML (0.55-4.78)
[2022-11-14 18:28] LABS: CK-MB VALUE MASS 1.3 NG/ML (<3.6)
[2022-11-14 18:30] LABS: MB/CK RELATIVE INDEX 1.36 (< OR =4)
[2022-11-14 21:00] VITALS: BP 118/65
== END 2022-11-14 21:18 | disposition home or self-care (01) ==
LOC: M ED 17:06
DX: R07.9 Chest pain, unspecified (principal); R22.43 Localized swelling, mass and lump, lower limb, bilateral; I44.4 Left anterior fascicular block; E11.9 Type 2 diabetes mellitus without complications; I10 Essential (primary) hypertension; Z86.79 Personal history of other diseases of the circulatory system; Z79.82 Long term (current) use of aspirin; Z79.4 Long term (current) use of insulin; Z79.811 Long term (current) use of aromatase inhibitors; Z79.899 Other long term (current) drug therapy

== ENCOUNTER → 2023-02-14 | Outpatient (CLI) | payer MEDICARE, OTHER ==
[~2023-02-14] MED LIST changes: +MAGN400T2
[2023-02-14 19:21] LABS: ALBUMIN 4.2 G/DL (3.2-5.2); BILIRUBIN,TOTAL 0.6 MG/DL (0.3-1.2); CALCIUM LEVEL 9.2 MG/DL (8.3-10.6); CHOLESTEROL RISK RATIO 3.12 (<5); CREATININE FOR GFR 1.38 MG/DL (0.70-1.30); HDL CHOLESTEROL 42.6 MG/DL (>40); NON-HDL-C 90.4 MG/DL; POTASSIUM SERUM 4.4 MMOL/L (3.5-5.1); TOTAL PROTEIN 6.8 G/DL (5.7-8.2)
[2023-02-14 19:27] LABS: HEMOGLOBIN A1c 7.9 % (4.0-6.0)
[2023-02-14 19:37] LABS: CREATININE, URINE 146.5 MG/DL; MAU/CREAT RATIO 10.2 MCG/MG (0.0-30.0)
== END ==
LOC: M WUC 15:12
PROVIDERS: ATTEND Family Medicine
DX: E11.69 Type 2 diabetes mellitus with other specified complication (principal)

== ENCOUNTER → 2023-03-26 | Outpatient (CLI) | payer MEDICARE, OTHER ==
[2023-03-26 13:05] LABS: BASO # 0.1 10^3/uL (0.0-0.2); BASO % 1.1 % (0.0-1.0); EOS # 0.2 10^3/uL (0.0-0.5); EOS % 2.7 % (0.0-3.0); HEMATOCRIT 39.9 % (42.0-52.0); HEMOGLOBIN 13.5 g/dl (13.5-17.5); LYMPH # 1.7 10^3/uL (1.5-5.0); LYMPH % 21.3 % (24.0-44.0); MEAN CORPUSCULAR HGB CONC 33.8 g/dl (32.0-36.5); MEAN CORPUSCULAR VOLUME 88.7 fl (80.0-96.0); MONO # 0.4 10^3/uL (0.0-0.8); MONO % 5.4 % (2.0-8.0); NEUTROPHILS # 5.7 10^3/uL (1.5-8.5); NEUTROPHILS % 69.3 % (36.0-66.0); PLATELET COUNT, AUTOMATED 264 10^3/uL (150-450); WHITE BLOOD COUNT 8.2 10^3/uL (4.0-10.0)
[2023-03-26 13:37] LABS: ALBUMIN 4.2 G/DL (3.2-5.2); BILIRUBIN,TOTAL 0.5 MG/DL (0.3-1.2); CALCIUM LEVEL 9.5 MG/DL (8.3-10.6); CREATININE FOR GFR 1.98 MG/DL (0.70-1.30); GLOMERULAR FILTRATION RATE 36.8 (>49); MAGNESIUM LEVEL 1.3 MG/DL (1.8-2.4); POTASSIUM SERUM 5.1 MMOL/L (3.5-5.1); TOTAL PROTEIN 6.8 G/DL (5.7-8.2)
== END ==
LOC: M WUC 10:54
PROVIDERS: ATTEND Family Medicine
DX: E87.5 Hyperkalemia (principal); I48.91 Unspecified atrial fibrillation; N18.9 Chronic kidney disease, unspecified; D72.829 Elevated white blood cell count, unspecified

== ENCOUNTER 2023-03-31 05:30 | Emergency (ER) | payer MEDICARE, OTHER ==
[~2023-03-31] VITALS: Ht 175.3 cm; Wt 105.3 kg
[2023-03-31 06:45] LABS: BASO # 0.1 10^3/uL (0.0-0.2); BASO % 1.1 % (0.0-1.0); EOS # 0.2 10^3/uL (0.0-0.5); EOS % 2.5 % (0.0-3.0); HEMATOCRIT 36.3 % (42.0-52.0); LYMPH # 1.8 10^3/uL (1.5-5.0); LYMPH % 23.6 % (24.0-44.0); MEAN CORPUSCULAR HEMOGLOBIN 29.7 pg (27.0-33.0); MEAN CORPUSCULAR HGB CONC 33.1 g/dl (32.0-36.5); MEAN CORPUSCULAR VOLUME 89.9 fl (80.0-96.0); MONO # 0.7 10^3/uL (0.0-0.8); MONO % 8.9 % (2.0-8.0); NEUTROPHILS # 4.8 10^3/uL (1.5-8.5); NEUTROPHILS % 63.6 % (36.0-66.0); PLATELET COUNT, AUTOMATED 210 10^3/uL (150-450); RED BLOOD COUNT 4.04 10^6/uL (4.30-6.10); WHITE BLOOD COUNT 7.6 10^3/uL (4.0-10.0)
[2023-03-31 06:55] LABS: INR 0.93; PROTHROMBIN TIME 12.7 SECONDS (12.5-14.5)
[2023-03-31 07:16] LABS: CK-MB VALUE MASS 1.1 NG/ML (<3.6)
[2023-03-31 07:18] LABS: BILIRUBIN,DIRECT 0.2 MG/DL (<0.4); BILIRUBIN,TOTAL 0.5 MG/DL (0.3-1.2); CALCIUM LEVEL 9.2 MG/DL (8.3-10.6); CREATININE FOR GFR 1.34 MG/DL (0.70-1.30); GLOMERULAR FILTRATION RATE 57.7 (>49); MB/CK RELATIVE INDEX 1.48 (< OR =4); POTASSIUM SERUM 4.2 MMOL/L (3.5-5.1); TOTAL PROTEIN 6.2 G/DL (5.7-8.2)
[2023-03-31] MEDS ORDERED: ISOS1TAB35 (07:45)
[2023-03-31] MEDS ORDERED: GLIP5TAB8 (07:45)
[2023-03-31] MEDS ORDERED: ELIQ5TAB PO (07:45)
[2023-03-31] MEDS ORDERED: HYDR-3490 (07:45)
[2023-03-31 08:01] LABS: MAGNESIUM LEVEL 1.3 MG/DL (1.8-2.4)
[2023-03-31] MEDS ORDERED: MAG SULF 1GM/100ML (MAG RUN) 1 GM in IV 1 EA IV ONE ×2 (08:35→09:15)
[2023-03-31 09:10] LABS: MB/CK RELATIVE INDEX 1.36 (< OR =4)
[2023-03-31 12:00] VITALS: BP 163/77
== END 2023-03-31 12:42 | disposition home or self-care (01) ==
LOC: M ED 05:30
DX: I49.3 Ventricular premature depolarization (principal); E29.1 Testicular hypofunction; I44.4 Left anterior fascicular block; I10 Essential (primary) hypertension; E78.5 Hyperlipidemia, unspecified; E11.9 Type 2 diabetes mellitus without complications; N18.9 Chronic kidney disease, unspecified; Z86.79 Personal history of other diseases of the circulatory system; Z79.01 Long term (current) use of anticoagulants; Z79.899 Other long term (current) drug therapy
CPT/HCPCS: 71045; 80048; 80076; 82550; 82553; 83735; 83880; 84484; 85025; 85610; 93005; 93041; 94760; 96365; 96366; 99285; J3475

== ENCOUNTER → 2023-04-30 | Outpatient (CLI) | payer MEDICARE, OTHER ==
[~2023-04-30] MED LIST changes: +ELIQ5TAB PO; +GLIP5TAB8; +HYDR-3490; +ISOS1TAB35
[2023-04-30 14:46] LABS: CALCIUM LEVEL 10.1 MG/DL (8.3-10.6); CREATININE FOR GFR 1.3 MG/DL (0.70-1.30); GLOMERULAR FILTRATION RATE 59.7 (>49); MAGNESIUM LEVEL 1.3 MG/DL (1.8-2.4); POTASSIUM SERUM 4.1 MMOL/L (3.5-5.1)
== END ==
LOC: M WUC 09:16
PROVIDERS: ATTEND Family Medicine
DX: R79.0 Abnormal level of blood mineral (principal)

== ENCOUNTER → 2024-01-02 | Outpatient (CLI) | payer MEDICARE, OTHER, MEDICAID ==
[~2024-01-02] MED LIST changes: -GABA-283 PO; +GABA-284 PO; +GLIP5TAB17; -GLIP5TAB8; +MECL-209 PO; -MECL1TAB31 PO
[2024-01-02 17:01] LABS: APPEARANCE, URINE CLEAR (CLEAR); BACTERIA, URINE AUTO NEGATIVE (NEGATIVE); BILIRUBIN, URINE AUTO NEGATIVE (NEGATIVE); BLOOD, URINE BLOOD NEGATIVE (NEGATIVE); COLOR, URINE YELLOW (YELLOW); GLUCOSE, URINE (UA) AUTO 2+ mg/dL (NEGATIVE); KETONE, URINE AUTO NEGATIVE (NEGATIVE); LEUKOCYTE ESTERASE, URINE AUTO NEGATIVE (NEGATIVE); NITRITE, URINE AUTO NEGATIVE (NEGATIVE); PROTEIN, URINE AUTO NEGATIVE (NEGATIVE); RBC, URINE AUTO 0 /HPF (0-3); SPECIFIC GRAVITY URINE AUTO 1.017 (1.002-1.035); SQUAMOUS EPITHELIAL CELL UR AU 0 /HPF (0-6); UROBILINOGEN, URINE AUTO 0.2 mg/dL (0.0-2.0); WBC, URINE AUTO 0 /HPF (0-3)
[2024-01-02 17:14] LABS: BASO # 0.1 10^3/uL (0.0-0.2); BASO % 0.7 % (0.0-1.0); EOS # 0.1 10^3/uL (0.0-0.5); HEMATOCRIT 42.7 % (42.0-52.0); HEMOGLOBIN 14.6 g/dl (13.5-17.5); LYMPH # 1.8 10^3/uL (1.5-5.0); LYMPH % 20.5 % (24.0-44.0); MEAN CORPUSCULAR HGB CONC 34.2 g/dl (32.0-36.5); MEAN CORPUSCULAR VOLUME 87.7 fl (80.0-96.0); MONO # 0.6 10^3/uL (0.0-0.8); MONO % 6.8 % (2.0-8.0); NEUTROPHILS # 6.3 10^3/uL (1.5-8.5); NEUTROPHILS % 70.7 % (36.0-66.0); PLATELET COUNT, AUTOMATED 247 10^3/uL (150-450); RED BLOOD COUNT 4.87 10^6/uL (4.30-6.10); WHITE BLOOD COUNT 8.9 10^3/uL (4.0-10.0)
[2024-01-02 17:29] LABS: HEMOGLOBIN A1c 8.8 % (4.0-6.0)
[2024-01-02 17:47] LABS: CREATININE, URINE 130.8 MG/DL
[2024-01-02 17:48] LABS: MAU/CREAT RATIO 19.8 MCG/MG (0.0-30.0)
[2024-01-02 17:53] LABS: THYROID STIMULATING HORMONE 2.501 uIU/ML (0.55-4.78)
[2024-01-02 17:57] LABS: ALBUMIN 4.3 G/DL (3.2-5.2); BILIRUBIN,TOTAL 0.6 MG/DL (0.3-1.2); CALCIUM LEVEL 9.3 MG/DL (8.3-10.6); CREATININE FOR GFR 1.36 MG/DL (0.70-1.30); GLOMERULAR FILTRATION RATE 56.7 (>49); POTASSIUM SERUM 3.9 MMOL/L (3.5-5.1)
[2024-01-12 18:06] LABS: C-PEPTIDE 6.2 ng/mL (1.1-4.4); IA-2 AUTOANTIBODIES < 7.50 U/mL (.); INSULIN ANTIBODY <5.0 uU/mL (.); INSULIN LEVEL 19.2 uIU/mL (2.6-24.9)
== END ==
LOC: M WUC 12:44
PROVIDERS: ATTEND Family Medicine
DX: E11.8 Type 2 diabetes mellitus with unspecified complications (principal); E66.9 Obesity, unspecified

== ENCOUNTER 2024-02-10 20:48 | Emergency (ER) | payer MEDICARE, OTHER ==
[~2024-02-10] VITALS: Ht 175.3 cm; Wt 101.6 kg
[2024-02-11] MEDS ORDERED: DOXY-443 PO (00:13)
[2024-02-11] MEDS ORDERED: MUPI2OI TOP (00:13)
[2024-02-11 00:29] VITALS: BP 156/83; TEMP 98.5; O2SAT 96
[2024-02-11] MEDS: ACETAMINOPHEN 500 MG TAB PO ONE (00:39)
[2024-02-11] MEDS: DOXYCYCLINE HYCLATE 100MG TABLET PO ONE (00:39)
[2024-02-11] MEDS: MUPIROCIN 2% OINT 22 GM TUBE TOP ONE (00:40)
== END 2024-02-11 01:00 | disposition home or self-care (01) ==
LOC: M ED 20:48
DX: L03.211 Cellulitis of face (principal); R51.9 Headache, unspecified; I10 Essential (primary) hypertension; E78.5 Hyperlipidemia, unspecified; K21.9 Gastro-esophageal reflux disease without esophagitis; F32.9 Major depressive disorder, single episode, unspecified; Z79.01 Long term (current) use of anticoagulants; Z79.4 Long term (current) use of insulin; Z79.2 Long term (current) use of antibiotics; Z79.899 Other long term (current) drug therapy; Z79.82 Long term (current) use of aspirin

== ENCOUNTER 2024-04-05 12:16 | Emergency (ER) | payer MEDICARE, OTHER ==
[~2024-04-05] VITALS: Ht 175.3 cm; Wt 102.8 kg
[~2024-04-05 12:16] MED LIST changes: +DOXY-323 PO; +FLUO-290 PO; -FLUO10CA18 PO; +MUPI2OI TOP
[2024-04-05 12:17] VITALS: TEMP 97.6
[2024-04-05] MEDS ORDERED: ACET650T61 PO (15:25)
[2024-04-05] MEDS ORDERED: METH-1165 PO (15:26)
[2024-04-05] MEDS ORDERED: DICL100G10 TOP (15:26)
[2024-04-05 15:49] VITALS: BP 145/68; O2SAT 98
== END 2024-04-05 15:54 | disposition home or self-care (01) ==
LOC: M ED 12:16
DX: S43.51XA Sprain of right acromioclavicular joint, initial encounter (principal); M19.011 Primary osteoarthritis, right shoulder; I10 Essential (primary) hypertension; E11.9 Type 2 diabetes mellitus without complications; G47.33 Obstructive sleep apnea (adult) (pediatric); K21.9 Gastro-esophageal reflux disease without esophagitis; F32.A Depression, unspecified; Z86.79 Personal history of other diseases of the circulatory system; Z79.82 Long term (current) use of aspirin; Z79.02 Long term (current) use of antithrombotics/antiplatelets; Z79.4 Long term (current) use of insulin; Z79.899 Other long term (current) drug therapy; Y92.9 Unspecified place or not applicable; Y93.9 Activity, unspecified; Y99.9 Unspecified external cause status

== ENCOUNTER 2024-05-30 03:13 | Emergency (ER) | payer MEDICAID, MEDICARE, OTHER ==
[~2024-05-30] VITALS: Ht 175.3 cm; Wt 102.4 kg
[~2024-05-30 03:13] MED LIST changes: +ACET650T61 PO; +DICL100G10 TOP; +METH-1165 PO
[2024-05-30 11:44] LABS: APPEARANCE, URINE CLEAR (CLEAR); BACTERIA, URINE AUTO NEGATIVE (NEGATIVE); BILIRUBIN, URINE AUTO NEGATIVE (NEGATIVE); BLOOD, URINE BLOOD NEGATIVE (NEGATIVE); COLOR, URINE YELLOW (YELLOW); GLUCOSE, URINE (UA) AUTO 3+ mg/dL (NEGATIVE); KETONE, URINE AUTO NEGATIVE (NEGATIVE); LEUKOCYTE ESTERASE, URINE AUTO NEGATIVE (NEGATIVE); NITRITE, URINE AUTO NEGATIVE (NEGATIVE); PROTEIN, URINE AUTO NEGATIVE (NEGATIVE); RBC, URINE AUTO 0 /HPF (0-3); SPECIFIC GRAVITY URINE AUTO 1.016 (1.002-1.035); SQUAMOUS EPITHELIAL CELL UR AU 0 /HPF (0-6); UROBILINOGEN, URINE AUTO 0.2 mg/dL (0.0-2.0); WBC, URINE AUTO 1 /HPF (0-3)
[2024-05-30] MEDS ORDERED: ANEC4CRE3 TOP (12:02)
[2024-05-30 12:24] VITALS: BP 180/82; TEMP 96.6; O2SAT 97
== END 2024-05-30 12:25 | disposition home or self-care (01) ==
LOC: M ED 03:13
DX: M25.552 Pain in left hip (principal); E11.9 Type 2 diabetes mellitus without complications; I10 Essential (primary) hypertension; E78.5 Hyperlipidemia, unspecified; Z79.1 Long term (current) use of non-steroidal anti-inflammatories (NSAID); Z79.84 Long term (current) use of oral hypoglycemic drugs; Z79.899 Other long term (current) drug therapy

== ENCOUNTER → 2024-10-05 | Outpatient (REF) | payer MEDICARE, MEDICAID ==
[~2024-10-05] MED LIST changes: +ANEC4CRE3 TOP; -DOXY-323 PO; +DOXY-441 PO; +GABA-1172 PO; -GABA-282 PO
[2024-10-05 17:30] LABS: ALBUMIN 3.9 G/DL (3.2-5.2); ALKALINE PHOSPHATASE 109 U/L (40-129); ALT/SGPT 30 U/L (7.0-40); AST/SGOT 16 U/L (<34); BILIRUBIN,TOTAL 0.6 MG/DL (0.3-1.2); BLOOD UREA NITROGEN 26 MG/DL (9-23); CARBON DIOXIDE LEVEL 26 MMOL/L (20-31); CHLORIDE LEVEL 103 MMOL/L (98-107); CHOLESTEROL LEVEL 153 MG/DL (<200); CHOLESTEROL RISK RATIO 3.88 (<5); CREATININE FOR GFR 1.23 MG/DL (0.70-1.30); GLOMERULAR FILTRATION RATE > 60.0 (>49); GLUCOSE, FASTING 269 MG/DL (74-106); HDL CHOLESTEROL 39.4 MG/DL (>40); NON-HDL-C 113.6 MG/DL; POTASSIUM SERUM 4.9 MMOL/L (3.5-5.1); SODIUM LEVEL 138 MMOL/L (136-145); TOTAL PROTEIN 6.7 G/DL (5.7-8.2); TRIGLYCERIDES LEVEL 113 MG/DL (<150)
[2024-10-05 17:49] LABS: HEMOGLOBIN A1c 8.8 % (4.0-6.0)
[2024-10-05 17:52] LABS: CREATININE, URINE 141.2 MG/DL; MAU/CREAT RATIO 5.6 MCG/MG (0.0-30.0)
== END ==
LOC: M SFHCLERA 10:12
PROVIDERS: ATTEND Family Medicine
DX: E11.65 Type 2 diabetes mellitus with hyperglycemia (principal); E78.5 Hyperlipidemia, unspecified

== ENCOUNTER → 2024-11-06 | Outpatient (CLI) | payer MEDICARE, MEDICAID | LOC: M SOG 13:58 | PROVIDERS: ATTEND Physician Assistant | DX: M19.042 Primary osteoarthritis, left hand (principal) ==

== ENCOUNTER → 2024-12-14 | Outpatient (CLI) | payer MEDICARE, MEDICAID ==
[2024-12-14 09:52] LABS: HEMATOCRIT 41.3 % (42.0-52.0); HEMOGLOBIN 13.3 g/dl (13.5-17.5); MEAN CORPUSCULAR HEMOGLOBIN 29.2 pg (27.0-33.0); MEAN CORPUSCULAR HGB CONC 32.2 g/dl (32.0-36.5); MEAN CORPUSCULAR VOLUME 90.8 fl (80.0-96.0); PLATELET COUNT, AUTOMATED 218 10^3/uL (150-450); RED BLOOD COUNT 4.55 10^6/uL (4.30-6.10); WHITE BLOOD COUNT 8.2 10^3/uL (4.0-10.0)
[2024-12-14 09:55] LABS: INR 0.97; PARTIAL THROMBOPLASTIN TIME 31.4 SECONDS (24.8-34.2); PROTHROMBIN TIME 13.2 SECONDS (12.5-14.5)
[2024-12-14 09:57] LABS: BLOOD UREA NITROGEN 23 MG/DL (9-23); CALCIUM LEVEL 9.2 MG/DL (8.3-10.6); CARBON DIOXIDE LEVEL 28 MMOL/L (20-31); CHLORIDE LEVEL 103 MMOL/L (98-107); CHOLESTEROL LEVEL 157 MG/DL (<200); CHOLESTEROL RISK RATIO 4.27 (<5); CREATININE FOR GFR 1.22 MG/DL (0.70-1.30); GLOMERULAR FILTRATION RATE > 60.0 (>49); GLUCOSE, FASTING 238 MG/DL (74-106); HDL CHOLESTEROL 36.7 MG/DL (>40); LDL CHOLESTEROL 67.9 MG/DL (<100); NON-HDL-C 120.3 MG/DL; POTASSIUM SERUM 4.7 MMOL/L (3.5-5.1); SODIUM LEVEL 141 MMOL/L (136-145); TRIGLYCERIDES LEVEL 262 MG/DL (<150)
== END ==
LOC: M WUC 08:14
PROVIDERS: ATTEND Nurse Practitioner Acute Care
DX: I25.118 Atherosclerotic heart disease of native coronary artery with other forms of angina pectoris (principal); Z79.01 Long term (current) use of anticoagulants

== ENCOUNTER 2025-03-08 00:09 | Emergency (ER) | payer MEDICAID, MEDICARE ==
[~2025-03-08] VITALS: Ht 175.3 cm; Wt 104.1 kg
[2025-03-08 00:12] VITALS: TEMP 98.2
[2025-03-08 01:12] LABS: BASO # 0.1 10^3/uL (0.0-0.2); BASO % 0.7 % (0.0-1.0); EOS # 0.1 10^3/uL (0.0-0.5); EOS % 1.6 % (0.0-3.0); HEMATOCRIT 35.6 % (42.0-52.0); LYMPH # 1.9 10^3/uL (1.5-5.0); LYMPH % 23.5 % (24.0-44.0); MEAN CORPUSCULAR HEMOGLOBIN 30.2 pg (27.0-33.0); MEAN CORPUSCULAR HGB CONC 33.7 g/dl (32.0-36.5); MEAN CORPUSCULAR VOLUME 89.4 fl (80.0-96.0); MONO # 0.7 10^3/uL (0.0-0.8); NEUTROPHILS # 5.3 10^3/uL (1.5-8.5); NEUTROPHILS % 65.7 % (36.0-66.0); PLATELET COUNT, AUTOMATED 218 10^3/uL (150-450); RED BLOOD COUNT 3.98 10^6/uL (4.30-6.10); WHITE BLOOD COUNT 8.1 10^3/uL (4.0-10.0)
[2025-03-08 01:35] LABS: CK-MB VALUE MASS 1.2 NG/ML (<3.6)
[2025-03-08 01:37] LABS: CALCIUM LEVEL 8.6 MG/DL (8.3-10.6); CREATININE FOR GFR 1.34 MG/DL (0.70-1.30); GLOMERULAR FILTRATION RATE 59.5 (>49); POTASSIUM SERUM 4.4 MMOL/L (3.5-5.1)
[2025-03-08 02:09] LABS: MB/CK RELATIVE INDEX 0.9 (< OR =4)
[2025-03-08 02:50] LABS: MB/CK RELATIVE INDEX 0.81 (< OR =4)
[2025-03-08 04:01] VITALS: BP 142/66; O2SAT 96
== END 2025-03-08 04:06 | disposition home or self-care (01) ==
LOC: M ED 00:09
DX: R07.9 Chest pain, unspecified (principal); I10 Essential (primary) hypertension; E11.9 Type 2 diabetes mellitus without complications; Z86.79 Personal history of other diseases of the circulatory system; Z86.718 Personal history of other venous thrombosis and embolism; Z79.82 Long term (current) use of aspirin; Z79.01 Long term (current) use of anticoagulants; Z79.4 Long term (current) use of insulin; Z79.899 Other long term (current) drug therapy; R06.02 Shortness of breath

== ENCOUNTER 2025-07-10 11:29 | Emergency (ER) | payer MEDICAID, MEDICARE, OTHER ==
[~2025-07-10] VITALS: Ht 175.3 cm; Wt 97.3 kg
[2025-07-10 11:31] VITALS: BP 135/78; TEMP 97.7; O2SAT 98
[2025-07-10] MEDS ORDERED: MEDR4PAK PO (11:55)
[2025-07-10] MEDS ORDERED: METH-1164 PO (11:55)
== END 2025-07-10 12:06 | disposition home or self-care (01) ==
LOC: M ED 11:29
DX: M54.50 Low back pain, unspecified (principal); E11.9 Type 2 diabetes mellitus without complications; Z86.79 Personal history of other diseases of the circulatory system; Z95.0 Presence of cardiac pacemaker; Z79.01 Long term (current) use of anticoagulants; Z79.1 Long term (current) use of non-steroidal anti-inflammatories (NSAID); Z79.82 Long term (current) use of aspirin; Z79.4 Long term (current) use of insulin; Z79.899 Other long term (current) drug therapy; Z79.02 Long term (current) use of antithrombotics/antiplatelets

== ENCOUNTER 2025-07-17 17:29 | Emergency (ER) | payer MEDICARE ==
[~2025-07-17] VITALS: Ht 175.3 cm; Wt 97.2 kg
[~2025-07-17 17:29] MED LIST changes: +MEDR4PAK PO; +METH-1164 PO
[2025-07-17 18:19] LABS: KETONE, URINE AUTO RFX NEGATIVE (NEGATIVE); LEUKOCYTE ESTERASE UR AUTO RFX NEGATIVE (NEGATIVE); NITRITE, URINE AUTO RFX NEGATIVE (NEGATIVE); RBC, URINE AUTO RFX 0 /HPF (0-3); SQUAM EPITHELIAL CELL UR AURFX 0 /HPF (0-6); WBC, URINE AUTO RFX 0 /HPF (0-3)
[2025-07-17 20:38] VITALS: TEMP 98.6
[2025-07-17] MEDS: ACETAMINOPHEN *IV* 1,000 MG in IV 1 EA IV ONE (20:47)
[2025-07-17] MEDS: METHOCARBAMOL 1,000 MG/10 ML VIAL IV ONE (20:47)
[2025-07-17 21:06] LABS: BASO # 0.1 10^3/uL (0.0-0.2); BASO % 0.5 % (0.0-1.0); EOS # 0.1 10^3/uL (0.0-0.5); EOS % 1.1 % (0.0-3.0); LYMPH # 1.9 10^3/uL (1.5-5.0); LYMPH % 19.3 % (24.0-44.0); MONO # 0.7 10^3/uL (0.0-0.8); MONO % 6.8 % (2.0-8.0); NEUTROPHILS # 7.3 10^3/uL (1.5-8.5); NEUTROPHILS % 72.1 % (36.0-66.0); PLATELET COUNT, AUTOMATED 211 10^3/uL (150-450)
[2025-07-17 21:24] LABS: CALCIUM LEVEL 8.7 MG/DL (8.3-10.6); CARBON DIOXIDE LEVEL 26.0 MMOL/L (20-31); CHLORIDE LEVEL 102.0 MMOL/L (98-107); CREATININE FOR GFR 1.52 MG/DL (0.70-1.30); GLOMERULAR FILTRATION RATE 51.2 (>49); POTASSIUM SERUM 4.5 MMOL/L (3.5-5.1); SODIUM LEVEL 136.0 MMOL/L (136-145)
[2025-07-17] MEDS: NS (Normal Saline) 0.9% 1,000 ML IV ONE (21:40)
[2025-07-17 23:01] VITALS: BP 136/62
[2025-07-17 23:08] VITALS: O2SAT 97
== END 2025-07-17 23:50 | disposition home or self-care (01) ==
LOC: M ED 17:29
DX: M54.50 Low back pain, unspecified (principal); I70.0 Atherosclerosis of aorta; M47.896 Other spondylosis, lumbar region; K57.30 Diverticulosis of large intestine without perforation or abscess without bleeding; E11.9 Type 2 diabetes mellitus without complications; I10 Essential (primary) hypertension; N18.9 Chronic kidney disease, unspecified; Z79.01 Long term (current) use of anticoagulants; Z79.1 Long term (current) use of non-steroidal anti-inflammatories (NSAID); Z79.02 Long term (current) use of antithrombotics/antiplatelets; Z79.85 Long-term (current) use of injectable non-insulin antidiabetic drugs; Z79.4 Long term (current) use of insulin; Z79.899 Other long term (current) drug therapy
CPT/HCPCS: 72131; 80048; 81001; 85025; 99284; J0131

== ENCOUNTER → 2025-09-20 | Outpatient (CLI) | payer MEDICARE, OTHER | LOC: M SOG 07:42 | PROVIDERS: ATTEND Physician Assistant | DX: S62.102A Fracture of unspecified carpal bone, left wrist, initial encounter for closed fracture (principal); W18.30XA Fall on same level, unspecified, initial encounter; Y92.009 Unspecified place in unspecified non-institutional (private) residence as the place of occurrence of the external cause ==

== ENCOUNTER → 2025-10-13 | Outpatient (REF) | payer MEDICARE, MEDICAID, OTHER ==
[2025-10-13 18:26] LABS: ESTIMATED AVERAGE GLUCOSE 237.0 MG/DL (60-110)
[2025-10-13 19:19] LABS: ALT/SGPT 27.0 U/L (7.0-40); AST/SGOT 21.0 U/L (<34); CALCIUM LEVEL 9.1 MG/DL (8.3-10.6); CARBON DIOXIDE LEVEL 26.0 MMOL/L (20-31); CHLORIDE LEVEL 101.0 MMOL/L (98-107); CREATININE FOR GFR 1.25 MG/DL (0.70-1.30); GLOMERULAR FILTRATION RATE 64.7 (>49); POTASSIUM SERUM 4.4 MMOL/L (3.5-5.1); SODIUM LEVEL 139.0 MMOL/L (136-145)
== END ==
LOC: M SFHCLERA 08:28
PROVIDERS: ATTEND Family Medicine
DX: E11.65 Type 2 diabetes mellitus with hyperglycemia (principal)